=== PATIENT | female | born 1930 | race Caucasian/White ===

== ENCOUNTER 2017-01-05 23:50 | Inpatient (IN) | payer MEDICARE ==
--- NOTE | 2017-01-05 23:58 | ERPHSYRPT ---
- History of Present Illness Time Seen by Provider: 01/05/17 23:54 Source: patient, family, EMS Exam Limitations: no limitations Physician History: The hx is of chronic back pain no acute injury but pt has increased pain today , no fever, no cancer per pt, some urinary symptoms though; abd is soft without mass ; Timing/Duration: day(s) Method of Injury: unknown Quality: sharp, aching Back Pain Location: lumbar spine, paraspinous muscles Severity of Pain-Max: moderate Severity of Pain-Current: moderate Modifying Factors: Improves With: movement Associated Symptoms: problems urinating Previous symptoms: same symptoms as today Allergies/Adverse Reactions: Sulfa (Sulfonamide Antibiotics) [Sulfa(Sulfonamide Antibiotics)] Allergy (Severe , Verified 01/06/17 00:06) Home Medications: Alprazolam 0.25 mg [xanAX 0.25 MG] 0.25 mg PO DAILY PRN PRN 01/06/17 [ History] Metoprolol Tartrate 25 mg PO BID 01/06/17 [History] Sennosides 8 tab PO DAILY 01/06/17 [History] Hx Tetanus, Diphtheria Vaccination/Date Given: Yes Hx Influenza Vaccination/Date Given: No Hx Pneumococcal Vaccination/Date Given: Yes - Review of Systems Constitutional: No Fever, No Chills Eyes: No Symptoms Ears, Nose, & Throat: No Symptoms Respiratory: No Cough, No Dyspnea Cardiac: No Chest Pain, No Edema, No Syncope Abdominal/Gastrointestinal: No Abdominal Pain, No Nausea, No Vomiting, No Diarrhea Genitourinary Symptoms: No Dysuria Musculoskeletal: Back Pain, No Neck Pain Skin: No Rash Neurological: No Dizziness, No Focal Weakness, No Sensory Changes Psychological: No Symptoms Endocrine: No Symptoms All Other Systems: Reviewed and Negative - Past Medical History Pertinent Past Medical History: Yes Neurological History: No Pertinent History ENT History: Cataracts Cardiac History: No Pertinent History Respiratory History: Asthma, COPD Endocrine Medical History: No Pertinent History Musculoskeletal History: Arthritis, Degenerative Disk Disease, Fractures, Osteoporosis GI Medical History: Ulcer, Other History: No Pertinent History Psycho-Social History: Anxiety, Depression, Eating Disorders Female Reproductive Disorders: No Pertinent History Other Medical History: FREQUENT CONSTIPATION, kyphoscoliosis - Past Surgical History Past Surgical History: Yes Neuro Surgical History: No Pertinent History Cardiac: No Pertinent History Respiratory: No Pertinent History Gastrointestinal: No Pertinent History Genitourinary: No Pertinent History Musculoskeletal: Orthopedic Surgery Female Surgical History: No Pertinent History Other Surgical History: right hip fracture - Social History Smoking Status: Never smoker Exposure to second hand smoke: No Drug Use: none Patient Lives Alone: No (lives at home with family) - Nursing Vital Signs Temperature: 98.6 F Temperature Source: Oral Pulse Rate: 68 Respiratory Rate: 18 Pain Intensity: 9 - Physical Exam General Appearance: mild distress, alert Eye Exam: PERRL/EOMI, eyes nml inspection Neck Exam: normal inspection, non-tender, supple, full range of motion, No meningismus, No midline tenderness Respiratory Exam: normal breath sounds, lungs clear, No respiratory distress Cardiovascular Exam: regular rate/rhythm, normal heart sounds Gastrointestinal Exam: soft, No tenderness, No mass Pelvic Exam: deferred Rectal Exam: deferred Extremity Exam: normal inspection, normal range of motion, No calf tenderness, No parasthesia, No pedal edema Peripheral Pulses: carotid (R): 2+, carotid (L): 2+, femoral (R): 2+, femoral (L ): 2+, dorsalis-pedis (R): 2+, dorsalis-pedis (L): 2+ Neurologic Exam: alert, oriented x 3, cooperative, textile 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-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 nml as tested, normal mood/affect, nml station & gait, sensation nml, No motor deficits Skin Exam: normal color, warm, dry, No rash SpO2 Interpretation: normal SpO2: 99 Oxygen Delivery: Room Air - Course Nursing assessment & vital signs reviewed: Yes EKG Interpreted by Me: Sinus Rhythm, NORMAL AXIS, Non-specific ST Changes Ordered Tests: Active Orders 24 hr Category Date Time Status Cath [Catheter-Leland Das] STAT Care 01/06/17 00:12 Active EKG-ER Only STAT Care 01/06/17 02:01 Active IV Insertion STAT Care 01/05/17 23:59 Active AMYLASE Stat Lab 01/06/17 00:30 Completed CMP Stat Lab 01/06/17 00:30 Completed LIPASE Stat Lab 01/06/17 00:30 Completed Lactic Acid Urgent Lab 01/06/17 00:40 Completed TROPONIN Stat Lab 01/06/17 00:30 Completed Medication Summary Discontinued Medications Generic Name Dose Route Start Last Admin Trade Name Freq PRN Reason Stop Dose Admin Diphenhydramine HCl 12.5 mg 01/06/17 00:02 01/06/17 00:25 Benadryl 50 Mg/Ml IV 01/06/17 00:03 12.5 mg STAT ONE Administration Diphenhydramine HCl Confirm 01/06/17 00:08 Benadryl 50 Mg/Ml Administered 01/06/17 00:09 Dose 50 mg .ROUTE .STK-MED ONE Morphine Sulfate 4 mg 01/06/17 00:00 01/06/17 00:26 Morphine Sulfate 4 Mg Inj IV 01/06/17 00:01 4 mg STAT ONE Administration Morphine Sulfate Confirm 01/06/17 00:09 Morphine Sulfate 4 Mg Inj Administered 01/06/17 00:10 Dose 4 mg .ROUTE .STK-MED ONE Promethazine HCl 25 mg 01/06/17 00:01 Phenergan 25 Mg Inj IM 01/06/17 00:02 STAT ONE Promethazine HCl Confirm 01/06/17 00:08 Phenergan 25 Mg Inj Administered 01/06/17 00:09 Dose 25 mg .ROUTE .STK-MED ONE Lab/Rad Data: Laboratory Result Diagrams 01/05/17 00:28 01/06/17 00:30 Laboratory Results 01/06/17 01/06/17 01/05/17 Range/Units 00:40 00:30 01:32 WBC (4.0-10.5) K/mm3 RBC (4.1-5.4) M/mm3 Hgb (12.0-16.0) gm/dl Hct (35-47) % MCV (78-100) fl MCH (26-32) pg MCHC (32-36) g/dl RDW (11.5-14.0) % Plt Count (150-450) K/mm3 MPV (6-9.5) fl Gran % (36.0-66.0) % Lymphocytes % (24.0-44.0) % Monocytes % (0.0-12.0) % Eosinophils % (0.00-5.0) % Basophils % (0.0-0.4) % Basophils # (0-0.4) Sodium 137 (136-145) mEq/L Potassium 4.4 (3.5-5.1) mEq/L Chloride 98 (98-107) mEq/L Carbon Dioxide 30.8 (21-32) mEq/L Anion Gap 12.7 (5-15) MEQ/L BUN 22 H (9-20) mg/dL Creatinine 0.74 (0.55-1.30) mg/dl Estimated GFR > 60 ML/MIN Glucose 97 (70-110) MG/DL Lactic Acid 0.9 (0.4-2.0) Calcium 9.2 (8.5-10.1) mg/dL Total Bilirubin 0.4 (0.2-1.0) mg/dL AST 33 (15-37) U/L ALT 13 (12-78) U/L Alkaline Phosphatase 24 L (46-116) U/L Troponin I < 0.017 (0.000-0.056) ng/ml Serum Total Protein 6.5 (6.4-8.2) gm/dL Albumin 3.7 (3.4-5.0) g/dL Amylase 169 H (25-115) U/L Lipase 351 (73-393) U/L Ur Collection Type CLEAN CATCH Urine Color LT.YELLOW (YELLOW) Urine Appearance CLEAR (CLEAR) Urine pH 7.5 (5-6) Ur Specific [place] 1.015 (1.005-1.025) Urine Protein NEGATIVE (Negative) Urine Glucose (UA) NEGATIVE (NEGATIVE) mg/dL Urine Ketones NEGATIVE (NEGATIVE) Urine Nitrite NEGATIVE (NEGATIVE) Urine Bilirubin NEGATIVE (NEGATIVE) Urine Urobilinogen 0.2 (0-1) mg/dL Urine WBC (Auto) NEGATIVE (NEGATIVE) Urine RBC (Auto) NEGATIVE (0-5) Javier/ul Specimen Received 01/06/17 0130 01/05/17 Range/Units 00:28 WBC 6.2 (4.0-10.5) K/mm3 RBC 3.67 L (4.1-5.4) M/mm3 Hgb 12.1 (12.0-16.0) gm/dl Hct 36.7 (35-47) % MCV 100.0 (78-100) fl MCH 32.9 H (26-32) pg MCHC 33.0 (32-36) g/dl RDW 14.1 H (11.5-14.0) % Plt Count 152 (150-450) K/mm3 MPV 9.9 H (6-9.5) fl Gran % 64.2 (36.0-66.0) % Lymphocytes % 25.0 (24.0-44.0) % Monocytes % 8.7 (0.0-12.0) % Eosinophils % 1.8 (0.00-5.0) % Basophils % 0.3 (0.0-0.4) % Basophils # 0.02 (0-0.4) Sodium (136-145) mEq/L Potassium (3.5-5.1) mEq/L Chloride (98-107) mEq/L Carbon Dioxide (21-32) mEq/L Anion Gap (5-15) MEQ/L BUN (9-20) mg/dL Creatinine (0.55-1.30) mg/dl Estimated GFR ML/MIN Glucose (70-110) MG/DL Lactic Acid (0.4-2.0) Calcium (8.5-10.1) mg/dL Total Bilirubin (0.2-1.0) mg/dL AST (15-37) U/L ALT (12-78) U/L Alkaline Phosphatase (46-116) U/L Troponin I (0.000-0.056) ng/ml Serum Total Protein (6.4-8.2) gm/dL Albumin (3.4-5.0) g/dL Amylase (25-115) U/L Lipase (73-393) U/L Ur Collection Type Urine Color (YELLOW) Urine Appearance (CLEAR) Urine pH (5-6) Ur Specific [place] (1.005-1.025) Urine Protein (Negative) Urine Glucose (UA) (NEGATIVE) mg/dL Urine Ketones (NEGATIVE) Urine Nitrite (NEGATIVE) Urine Bilirubin (NEGATIVE) Urine Urobilinogen (0-1) mg/dL Urine WBC (Auto) (NEGATIVE) Urine RBC (Auto) (0-5) Javier/ul Specimen Received - Progress Progress: improved, re-examined Progress Note: 01/06/17 03:05 discussed with pt and Dr Argueta covering for Dr Caraballo and all agree best to place pt in on obs and try to void again in am ; Discussed with : Kendall Will see patient in: hospital (observation) Counseled pt/family regarding: lab results, diagnosis, need for follow-up - Departure Time of Disposition: 03:07 Departure Disposition: Observation Clinical Impression: Urinary retention with incomplete bladder emptying, Intractable low back pain Condition: Good Critical Care Time: No
[2017-01-06] MEDS ORDERED: MORPHINE SULFATE 4 MG INJ IV ONE
[2017-01-06] MEDS ORDERED: Phenergan 25 MG INJ IM ONE (00:01)
[2017-01-06] MEDS ORDERED: BENADRYL 50 MG/ML IV ONE (00:02)
[2017-01-06] MEDS ORDERED: Phenergan 25 MG INJ ONE (00:08)
[2017-01-06] MEDS ORDERED: BENADRYL 50 MG/ML ONE (00:08)
[2017-01-06] MEDS ORDERED: MORPHINE SULFATE 4 MG INJ ONE (00:09)
[2017-01-06 00:41] LABS: BASOPHIL % 0.3 % (0.0-0.4); Eosinophil % 1.8 % (0.00-5.0); Granulocytes % 64.2 % (36.0-66.0); Mean Platelet Volume 9.9 fl (6-9.5); Monocytes % 8.7 % (0.0-12.0); Platelet Count 152 K/mm3 (150-450); Red Blood Count 3.67 M/mm3 (4.1-5.4); Red Cell Distribution Width 14.1 % (11.5-14.0); White Blood Count 6.2 K/mm3 (4.0-10.5)
[2017-01-06 00:42] LABS: Mean Corpuscular Hemoglobin 32.9 pg (26-32)
[2017-01-06 01:36] LABS: Collection Type CLEAN CATCH; Ph 7.5 (5-6)
[2017-01-06 01:37] LABS: COMPLETE URINE MICROSCOPIC? NO
[2017-01-06 02:23] LABS: ALBUMIN 3.7 g/dL (3.4-5.0); ALKALINE PHOSPHATASE 24 U/L (46-116); ANION GAP 12.7 MEQ/L (5-15); BILIRUBIN,TOTAL 0.4 mg/dL (0.2-1.0); BLOOD UREA NITROGEN 22 mg/dL (9-20); CHLORIDE 98 mEq/L (98-107); Carbon Dioxide 30.8 mEq/L (21-32); Glucose 97 MG/DL (70-110); LIPASE 351 U/L (73-393); Potassium 4.4 mEq/L (3.5-5.1); SGOT/AST 33 U/L (15-37); SGPT/ALT 13 U/L (12-78); SODIUM 137 mEq/L (136-145); TROPONIN < 0.017 ng/ml (0.000-0.056); Total Protein 6.5 gm/dL (6.4-8.2)
[2017-01-06] MEDS ORDERED: NovoLOG Insulin SQ PRN (04:25)
[2017-01-06] MEDS ORDERED: Zofran 4 MG/2 ML VIAL IV PRN (04:25)
[2017-01-06] MEDS: Sodium Chloride 0.9% 1000 ML 1,000 ML IV SCH ×2 (04:36→15:01)
[2017-01-06] MEDS ORDERED: Sodium Chloride 3 ML UD NEBULES IH ONE (06:57)
[2017-01-06] MEDS: PULMICORT 0.5 MG/2 ML RESPULES IH SCH (06:59)
--- NOTE | 2017-01-06 08:54 | PCM.HP ---
History of Present Illness - Chief Complaint Chief Complaint: intractable pain/urinary retention History of Present Illness: is a 86 year old female who presented to the emergency department early this morning with severe upper back pain. She reports she has pain between her shoulders that began 1 week ago, there was no trauma, fall or inciting event. She was also unable to urinate and had a large amount of urinary retention. - Review of Systems Constitutional: No Fever, No Chills Respiratory: No Cough, No Short Of Breath Cardiac: No Chest Pain, No Edema, No Syncope Genitourinary Symptoms: Urinary Retention, No Dysuria, No Frequency Musculoskeletal: Back Pain Medications & Allergies Home Medications: Home Medication List Alprazolam 0.25 mg [xanAX 0.25 MG] 0.25 mg PO DAILY PRN PRN 01/06/17 [ History Confirmed 01/06/17] Metoprolol Tartrate 25 mg PO BID 01/06/17 [History Confirmed 01/06/17] Sennosides 2 tab PO QID 01/06/17 [History Confirmed 01/06/17] Allergies/Adverse Reactions: Allergies Allergy/AdvReac Type Severity Reaction Status Date / Time Sulfa (Sulfonamide Allergy Severe Verified 01/06/17 00:06 Antibiotics) [Sulfa(Sulfonamide Antibiotics)] - Past Medical History Past Medical History: Yes Neurological History: No Pertinent History ENT History: Cataracts Cardiac History: No Pertinent History, Myocardial Infarction (ND) Respiratory History: Asthma, COPD Endocrine Medical History: No Pertinent History Musculoskelatal History: Arthritis, Degenerative Disk Disease, Fractures, Osteoporosis GI Medical History: Ulcer, Other History: No Pertinent History Pyscho-Social History: Anxiety, Depression, Eating Disorders Reproductive Disorders: No Pertinent History Comment: FREQUENT CONSTIPATION, kyphoscoliosis - Female History Are you now?: No - Past Surgical History Past Surgical History: Yes Neuro Surgical History: No Pertinent History Cardiac History: No Pertinent History Respiratory Surgery: No Pertinent History GI Surgical History: No Pertinent History Genitourinary Surgical Hx: No Pertinent History Musculskeletal Surgical Hx: Orthopedic Surgery Female Surgical History: No Pertinent History Other Surgical History: right hip fracture - Social History Smoking Status: Never smoker Exposure to second hand smoke: No Alcohol: None Drug Use: none - Physical Exam Vital Signs: Vital Signs - 24 hr Temp Pulse Resp BP Pulse Ox 01/06/17 07:09 98.2 F 56 L 18 101/51 96 01/06/17 07:04 63 18 95 01/06/17 04:37 99.5 F 61 16 159/70 98 01/06/17 04:34 61 17 96 01/06/17 03:08 98.6 F 68 18 99 01/06/17 02:15 84 18 174/89 97 01/06/17 01:37 78 16 128/59 97 01/05/17 23:51 98.6 F 68 18 189/78 99 General Appearance: no apparent distress, alert, thin Neurologic Exam: alert, oriented x 3, No motor deficits Eye Exam: PERRL/EOMI, eyes nml inspection Respiratory Exam: normal breath sounds, lungs clear, No respiratory distress Cardiovascular Exam: regular rate/rhythm, normal heart sounds, normal peripheral pulses Gastrointestinal/Abdomen Exam: soft, normal bowel sounds, No tenderness, No mass Back Exam: point tenderness (lower t-spine, significant curvature to upper back) Extremity Exam: normal inspection, normal range of motion, pelvis stable Results - Labs Lab/Micro Results: Accuchecks Date 01/06/17 Time 07:25 Accuchecks Date 01/06/17 Time 07:25 - Radiology Impressions Radiology Exams & Impressions: Radiology Procedures Category Date Time Status THORACIC SPINE (AP,LAT,SWIMM) Urgent Exams 01/06/17 08:47 Ordered - Other Procedures and Tests Respiratory Therapy 01/06/17 10:00 Respiratory Nebulizer DAILY Assessment/Plan (1) Upper back pain Current Visit: Yes Status: Acute Assessment & Plan: xray t-spine, discussed xray should not cause skin irritation. suspect compression fracture from osteoporosis, patient with severe curvature of t- spine on exam and bony tenderness T10-12 region Code(s): M54.9 - DORSALGIA, UNSPECIFIED (2) Urinary retention with incomplete bladder emptying Current Visit: Yes Status: Acute Assessment & Plan: keep wakefield in place Code(s): R33.9 - RETENTION OF URINE, UNSPECIFIED
--- NOTE | 2017-01-06 09:19 | XRAY ---
Indication: Pain. Comparison: None AP/lateral thoracic spine demonstrates osteopenia and T12 compression fracture of uncertain chronicity with near-complete collapse. Visualized lungs hyperinflated and clear with incidental chunky left paratracheal calcified node.
[2017-01-06] MEDS ORDERED: xanAX 0.25 MG PO PRN (09:37)
[2017-01-06] MEDS: Lopressor 25MG Tab PO SCH ×2 (10:56→22:25)
[2017-01-06] MEDS: SENOKOT 8.6 MG PO SCH ×4 (10:59→22:25)
[2017-01-06] MEDS: MORPHINE SULFATE 4 MG INJ IV PRN (14:05)
[2017-01-07] MEDS: Sodium Chloride 0.9% 1000 ML 1,000 ML IV SCH ×3 (01:16→19:56)
[2017-01-07 05:37] LABS: BASOPHIL % 0.3 % (0.0-0.4); Eosinophil % 2.9 % (0.00-5.0); Granulocytes % 50.4 % (36.0-66.0); Lymphocytes % 34.6 % (24.0-44.0); Mean Cell Volume 102.9 fl (78-100); Mean Corpuscular Hemoglobin 33.2 pg (26-32); Mean Platelet Volume 9.8 fl (6-9.5); Monocytes % 11.8 % (0.0-12.0); Platelet Count 135 K/mm3 (150-450); Red Cell Distribution Width 14.3 % (11.5-14.0); White Blood Count 3.8 K/mm3 (4.0-10.5)
[2017-01-07 05:50] LABS: ALBUMIN 2.6 g/dL (3.4-5.0); ALKALINE PHOSPHATASE 18 U/L (46-116); BILIRUBIN,TOTAL 0.3 mg/dL (0.2-1.0); BLOOD UREA NITROGEN 13 mg/dL (9-20); CHLORIDE 105 mEq/L (98-107); Carbon Dioxide 28.6 mEq/L (21-32); Glucose 86 MG/DL (70-110); Potassium 4.4 mEq/L (3.5-5.1); SGOT/AST 25 U/L (15-37); SGPT/ALT 13 U/L (12-78); SODIUM 139 mEq/L (136-145); Total Protein 4.9 gm/dL (6.4-8.2)
[2017-01-07] MEDS: PULMICORT 0.5 MG/2 ML RESPULES IH SCH (06:49)
--- NOTE | 2017-01-07 07:59 | PCM.NOTE ---
Date and Time: 01/07/17 0754 Subjective Assessment: Pain is 0/10 when at rest and 10/10 with movement. Saqib po. C/o constipation. At home she takes 8 senna tabs a day, eats prunes, and takes a fiber supplement. - Review of Systems Constitutional: No Fever Abdominal/Gastrointestinal: Constipation Musculoskeletal: Back Pain Objective Exam General Appearance: no apparent distress, other (TORRES MARTINEZ) Neurologic Exam: alert, oriented x 3, cooperative Skin Exam: normal color, warm, dry Eye Exam: eyes nml inspection Respiratory Exam: normal breath sounds, lungs clear, No crackles/rales, No rhonchi, No wheezing Cardiovascular Exam: regular rate/rhythm, normal heart sounds, No murmur Gastrointestinal/Abdomen Exam: soft, No tenderness Extremity Exam: No pedal edema, No swelling Back Exam: other (kyphotic. ttp around T10-T12, mild, no crepitus) OBJECTIVE DATA Vital Signs: Vital Signs - 24 hr Temp Pulse Resp BP Pulse Ox 01/07/17 04:00 97.9 F 59 L 14 110/55 94 L 01/07/17 00:00 98.5 F 73 18 131/64 94 L 01/06/17 19:48 98.6 F 72 13 114/53 95 01/06/17 15:46 98.1 F 75 18 109/57 93 L 01/06/17 12:00 98.4 F 79 18 108/54 98 01/06/17 10:00 60 18 96 Pain Assessment - Last Documented Pain Intensity 3 Pain Scale Used 0-10 Pain Scale Intake and Output: Intake & Output 01/04/17 01/05/17 01/06/17 01/07/17 11:59 11:59 11:59 11:59 Intake Total 120 3083 Output Total 1300 1850 Balance -1180 1233 Weight 33.022 kg Lab Results: Lab Results-Last 24 Hours 01/06/17 01/07/17 01/07/17 Range/Units 05:00 05:15 05:15 WBC 3.8 L (4.0-10.5) K/mm3 RBC 3.10 L (4.1-5.4) M/mm3 Hgb 10.3 L (12.0-16.0) gm/dl Hct 31.9 L (35-47) % MCV 102.9 H (78-100) fl MCH 33.2 H (26-32) pg MCHC 32.3 (32-36) g/dl RDW 14.3 H (11.5-14.0) % Plt Count 135 L (150-450) K/mm3 MPV 9.8 H (6-9.5) fl Gran % 50.4 (36.0-66.0) % Lymphocytes % 34.6 (24.0-44.0) % Monocytes % 11.8 (0.0-12.0) % Eosinophils % 2.9 (0.00-5.0) % Basophils % 0.3 (0.0-0.4) % Basophils # 0.01 (0-0.4) Sodium 139 (136-145) mEq/L Potassium 4.4 (3.5-5.1) mEq/L Chloride 105 (98-107) mEq/L Carbon Dioxide 28.6 (21-32) mEq/L Anion Gap 10.0 (5-15) MEQ/L BUN 13 (9-20) mg/dL Creatinine 0.54 L (0.55-1.30) mg/dl Estimated GFR > 60 ML/MIN Glucose 86 (70-110) MG/DL Hemoglobin A1c 6.5 H (4.5-6.2) Calcium 7.9 L (8.5-10.1) mg/dL Total Bilirubin 0.3 (0.2-1.0) mg/dL AST 25 (15-37) U/L ALT 13 (12-78) U/L Alkaline Phosphatase 18 L (46-116) U/L Serum Total Protein 4.9 L (6.4-8.2) gm/dL Albumin 2.6 L (3.4-5.0) g/dL Radiology Exams: Radiology Procedures Category Date Time Status THORACIC SPINE (AP,LAT,SWIMM) Urgent Exams 01/06/17 08:47 Completed Multi-Disciplinary Progress Notes: Multi-Disciplinary Progress Notes 01/06/17 09:28 Case Management Note by Herminia Brian DISCHARGE PLAN REVIEWED. 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 WILL CONTINUE TO MONITOR FOR ALL D/C NEEDS. Initialized on 01/06/17 09:28 - END OF NOTE Assessment/Plan (1) Vertebral compression fracture Current Visit: Yes Status: Acute Assessment & Plan: I urged her to discuss possible kyphoplasty with Dr. Saeed; she has questions but will discuss with him and with Dr. Barker who is a family friend. If she opts to not have the surgery, will have her fitted with a brace. PT to consult either way; she lives at home with her elderly . Code(s): M48.50XA - COLLAPSED VERTEBRA, NEC, SITE UNSP, INIT (2) Constipation Current Visit: Yes Status: Acute Qualifiers: Constipation type: unspecified constipation type Qualified Code(s): K59.00 - Constipation, unspecified Assessment & Plan: try miralax here, ok to continue senna and prunes. Code(s): K59.00 - CONSTIPATION, UNSPECIFIED (3) Urinary retention with incomplete bladder emptying Current Visit: Yes Status: Acute Assessment & Plan: wakefield anchored currently. Unsure if the retention was due to the severe back pain; would like to see her able to empty her bladder on her own before she is discharged home. Code(s): R33.9 - RETENTION OF URINE, UNSPECIFIED
[2017-01-07] MEDS: SENOKOT 8.6 MG PO SCH ×4 (08:20→21:14)
[2017-01-07] MEDS: Lopressor 25MG Tab PO SCH ×2 (08:23→21:14)
[2017-01-07] MEDS: Miralax Powder 17GM PACKET PO SCH (08:24)
[2017-01-08] MEDS: MORPHINE SULFATE 4 MG INJ IV PRN (04:39)
[2017-01-08] MEDS: Sodium Chloride 0.9% 1000 ML 1,000 ML IV SCH ×2 (05:23→18:30)
[2017-01-08] MEDS: PULMICORT 0.5 MG/2 ML RESPULES IH SCH (06:50)
[2017-01-08] MEDS ORDERED: Lactated Ringers 2,000 ML IV ONE (06:56)
[2017-01-08] MEDS ORDERED: CEFAZOLIN 2 GM-D5W BAG** 50 ML IV SCH (08:00)
[2017-01-08] MEDS ORDERED: DIPRIVAN 200 MG/20 ML IV ONE (08:00)
[2017-01-08] MEDS ORDERED: SUBLIMAZE 100 MCG/2 ML IV ONE (08:00)
[2017-01-08] MEDS ORDERED: Zofran 4 MG/2 ML VIAL IV ONE (08:00)
[2017-01-08] MEDS ORDERED: Lactated Ringers 1,000 ML IV SCH (08:00)
[2017-01-08] MEDS ORDERED: Quelicin Fliptop 200 MG/10 ML IJ ONE (08:00)
[2017-01-08] MEDS ORDERED: Decadron 4 MG INJ IV ONE (08:00)
[2017-01-08] MEDS ORDERED: Pepcid 20 MG VIAL IV SCH (08:00)
--- NOTE | 2017-01-08 08:55 | PCM.NOTE ---
Date and Time: 01/08/17851 Subjective Assessment: Pt scheduled for kyphoplasty this morning although she hasn't spoken wiht Dr. Saeed yet. Lastm orphine 3hrs ago. steven po. did have a small BM. - Review of Systems Constitutional: No Fever Musculoskeletal: Back Pain Objective Exam General Appearance: no apparent distress, cachetic Neurologic Exam: alert, oriented x 3, cooperative Skin Exam: normal color, warm, dry Respiratory Exam: normal breath sounds, lungs clear, No wheezing Cardiovascular Exam: regular rate/rhythm, normal heart sounds, No murmur Gastrointestinal/Abdomen Exam: soft, distention, No tenderness, No guarding, No rebound Extremity Exam: No pedal edema, No swelling OBJECTIVE DATA Vital Signs: Vital Signs - 24 hr Temp Pulse Resp BP BP Pulse Ox 01/08/17 08:08 98.6 F 75 18 127/58 94 L 01/08/17 07:31 80 16 93 L 01/08/17 07:30 98.6 F 75 18 127/58 94 L 01/08/17 04:00 98.5 F 72 17 119/66 96 01/08/17 00:00 98.0 F 68 17 141/65 96 01/07/17 20:00 98.3 F 64 17 116/58 94 L 01/07/17 15:14 97.4 F 62 18 137/68 95 01/07/17 12:21 97.8 F 64 18 144/65 93 L Pain Assessment - Last Documented Pain Intensity 6 Pain Scale Used [facility] Intake and Output: Intake & Output 01/05/17 01/06/17 01/07/17 01/08/17 11:59 11:59 11:59 11:59 Intake Total 120 3083 2683 Output Total 1300 1850 4000 Balance -1180 1233 -1317 Weight 33.022 kg 38.374 kg 36.469 kg Lab Results: Accuchecks Date 01/07/17 Accucheck Value: 109 Radiology Exams: Radiology Procedures Category Date Time Status THORACIC SPINE (AP,LAT,SWIMM) Urgent Exams 01/06/17 08:47 Completed Multi-Disciplinary Progress Notes: Multi-Disciplinary Progress Notes 01/07/17 16:32 Physical Therapy Note by Joelle Hitchcock PATIENT AGREEABLE TO SMALL ICE PACK TO HER BACK FOR PAIN RELIEF THIS P.M. - SEEMS TO FIND IT BENEFICIAL STATING IT FEELS "PRETTY GOOD". WILL FOLLOW. PROBABLE T12 KYPHOPLASTY TOMORROW. Initialized on 01/07/17 16:32 - END OF NOTE Assessment/Plan (1) Vertebral compression fracture Current Visit: Yes Status: Acute Assessment & Plan: plabs kyphoplasty. Afterward I suspect that, given her frail status, she will need rehab possibly as a swing bed (they are interested in this). Code(s): M48.50XA - COLLAPSED VERTEBRA, NEC, SITE UNSP, INIT (2) Constipation Current Visit: Yes Status: Acute Qualifiers: Constipation type: unspecified constipation type Qualified Code(s): K59.00 - Constipation, unspecified Assessment & Plan: will adjust medicines after surgery as needed. Code(s): K59.00 - CONSTIPATION, UNSPECIFIED (3) Urinary retention with incomplete bladder emptying Current Visit: Yes Status: Acute Assessment & Plan: has wakefield catheter. after surgery will try weaning off the catheter. Code(s): R33.9 - RETENTION OF URINE, UNSPECIFIED
[2017-01-08] MEDS ORDERED: Marcaine 0.5% SDV 10 ML ONE (09:15)
[2017-01-08] MEDS ORDERED: Lactated Ringers 1,000 ML IV ONE (09:15)
[2017-01-08] MEDS: Lopressor 25MG Tab PO SCH ×2 (09:28→21:12)
--- NOTE | 2017-01-08 12:48 | OP ---
SURGERY DATE/TIME: 01/08/2017 1050 PREOPERATIVE DIAGNOSIS: T12 osteopenic pathologic compression fracture. POSTOPERATIVE DIAGNOSES: 1) T12 burst fracture with vertebral collapse. 2) T11-L1 osteopenic pathologic compression fracture and evolving junctional collapse. PROCEDURES: 1) In situ fusion of T12. 2) Fluoroscopy per surgeon for T12. 3) Bone biopsy T12. 4) Kyphoplasty T11 and L1. 5) Bone biopsy T11 and L1. 6) Fluoroscopy per surgeon for T11 and L1. SURGEON: Fredy Saeed D.O. HAND BOOTMAKER: None. ANESTHESIA: General per MAT PACKER. ESTIMATED BLOOD LOSS: Minimal. DESCRIPTION OF PROCEDURE: The patient intraoperatively noted to have multiple subacute and acute on chronic compression fractures throughout the mid thoracic and thoracolumbar spine. Based on this I thought it was bella to treat the core problem which was T12 and create a little additional support for her in the marginal superior-inferior to this treatment zone with kyphoplasty with decompression fractures above and below. The T12 is really in fact more of a middle column and anterior column collapse making this by definition more a burst fracture and was treated with in situ fusion in the typical manner. The patient is taken to the operative suite and placed in supine position. Given a general anesthetic, placed prone. All neurovascular areas well padded. Sterile prep and drape to the back. Two view fluoroscopic guidance used to identify T12 and then the associated areas of T11 and L1. The entry point was made in the T12 vertebral body through the pedicles in the 10:00 and 2:00 positions crossing with 2-in-1 CareFusion cannula and trocar into the vertebral body. Docking points on the medial pedicular rosario and then twist drills and coring reamers advanced up to the anterior shell but not beyond to take specimen for specimen for biopsy. Balloons were inflated to pressures of 100 to 200 mm of Mercury in the vertebral body which was depressed and triangular in shape. These balloons were then disinflated and removed and bone void opacifying polymethyl methacrylate was filled about 2 to 3 cc into this breach. X-rays looked excellent and Ethilon sutures were placed here. T11 and L1 were treated with standard kyphoplasty with entry points made in the 10:00 and 2:00 positions crossing the pedicle into the vertebral body avoiding medial pedicular wall. On AP view and lateral view the pedicle was penetrated and the vertebral body entered before the medial pedicular wall would be violated by cannulas. Biopsies were taken. Balloons were inflated to pressures of 100 to 200 mm of Mercury and then disinflated and then finally bone void opacifying polymethyl methacrylate was placed under pressure volumes of about 5 to 6 cc bilaterally. Ethilon sutures were placed in the portal sites. The patient sent onto recovery room in satisfactory condition. I talked to the family about the merits of the case.
[2017-01-08] MEDS ORDERED: MORPHINE SULFATE 4 MG INJ IV PRN (13:20)
--- NOTE | 2017-01-08 13:30 | XRAY ---
Indication: T11/T12/L1 kyphoplasty. Intraoperative fluoroscopy was provided for 8 minute 11 seconds. 2 digital spot images submitted for interpretation demonstrates T11/T12/L1 kyphoplasty without abnormal extravasation of cement material. Correlate with intraoperative findings/report.
[2017-01-08] MEDS: Miralax Powder 17GM PACKET PO SCH (15:05)
[2017-01-08] MEDS: SENOKOT 8.6 MG PO SCH ×4 (15:05→21:12)
[2017-01-09] MEDS: Sodium Chloride 0.9% 1000 ML 1,000 ML IV SCH ×2 (05:09→15:24)
[2017-01-09] MEDS: PULMICORT 0.5 MG/2 ML RESPULES IH SCH (06:39)
[2017-01-09] MEDS: SENOKOT 8.6 MG PO SCH ×4 (09:07→22:04)
[2017-01-09] MEDS: Lopressor 25MG Tab PO SCH ×2 (09:07→22:04)
[2017-01-09] MEDS: Miralax Powder 17GM PACKET PO SCH (09:07)
[2017-01-09] MEDS ORDERED: CITROMA 296 ML PO ONE (10:06)
--- NOTE | 2017-01-09 10:06 | PCM.NOTE ---
Date and Time: 01/09/17 1002 Subjective Assessment: Her pain is much less since the kyphoplasty; has occasional pain when rising from lying down. Saqib po. Has been up walking! PT to evaluate today. - Review of Systems Constitutional: No Fever Musculoskeletal: Back Pain Objective Exam General Appearance: no apparent distress, cachetic Neurologic Exam: alert, oriented x 3, cooperative Skin Exam: normal color, warm, dry Eye Exam: eyes nml inspection Respiratory Exam: normal breath sounds, lungs clear Cardiovascular Exam: regular rate/rhythm, normal heart sounds, No murmur Gastrointestinal/Abdomen Exam: soft, normal bowel sounds, distention, No tenderness Extremity Exam: No pedal edema, No swelling Back Exam: other (dressing in place.) OBJECTIVE DATA Vital Signs: Vital Signs - 24 hr Temp Pulse Resp BP Pulse Ox 01/09/17 08:00 20 01/09/17 07:53 97.7 F 63 20 129/63 94 L 01/09/17 06:41 60 16 94 L 01/09/17 04:00 98.1 F 81 14 151/69 96 01/09/17 00:00 98.3 F 72 16 132/63 95 01/08/17 20:34 97.9 F 74 14 125/59 92 L 01/08/17 20:00 20 01/08/17 15:38 20 01/08/17 15:19 97.8 F 71 18 137/73 95 01/08/17 13:30 97.8 F 59 L 18 155/67 92 L 01/08/17 13:00 97.6 F 67 18 149/70 93 L 01/08/17 12:45 97.6 F 67 18 153/75 92 L 01/08/17 12:00 97.6 F 67 19 153/75 94 L Pain Assessment - Last Documented Pain Intensity 2 Pain Scale Used 0-10 Pain Scale Intake and Output: Intake & Output 01/06/17 01/07/17 01/08/17 01/09/17 11:59 11:59 11:59 11:59 Intake Total 1761 Output Total 1050 Balance 711 Weight 41.685 kg Radiology Exams: Radiology Procedures Category Date Time Status KYPHOPLASTY per VERTEBRAE Routine Exams 01/08/17 Completed KYPHOPLASTY per VERTEBRAE Routine Exams 01/08/17 Taken KYPHOPLASTY per VERTEBRAE Routine Exams 01/08/17 Taken Assessment/Plan (1) Vertebral compression fracture Current Visit: Yes Status: Acute Assessment & Plan: much better after kyphoplasty, thank you! Await report from PT whether pt can go home, needs rehab, needs home health etc. Code(s): M48.50XA - COLLAPSED VERTEBRA, NEC, SITE UNSP, INIT (2) Constipation Current Visit: Yes Status: Acute Qualifiers: Constipation type: unspecified constipation type Qualified Code(s): K59.00 - Constipation, unspecified Assessment & Plan: try mag citrate today. more bloated. Code(s): K59.00 - CONSTIPATION, UNSPECIFIED (3) Urinary retention with incomplete bladder emptying Current Visit: Yes Status: Acute Assessment & Plan: will try weaning off the wakefield catheter through the day today. If she can urinate ok overnight can go without the wakefield catheter. If not, will replace it and refer to urology. Code(s): R33.9 - RETENTION OF URINE, UNSPECIFIED
[2017-01-10] MEDS: Sodium Chloride 0.9% 1000 ML 1,000 ML IV SCH ×2 (00:59→12:48)
[2017-01-10] MEDS: PULMICORT 0.5 MG/2 ML RESPULES IH SCH (06:29)
[2017-01-10 08:01] VITALS: O2SAT 97
[2017-01-10] MEDS: Miralax Powder 17GM PACKET PO SCH (08:05)
[2017-01-10] MEDS: SENOKOT 8.6 MG PO SCH ×2 (08:05→12:39)
[2017-01-10] MEDS: Lopressor 25MG Tab PO SCH (08:06)
[2017-01-10 08:47] LABS: BASOPHIL % 0.2 % (0.0-0.4); Eosinophil % 3.3 % (0.00-5.0); Granulocytes % 60.7 % (36.0-66.0); Lymphocytes % 26.4 % (24.0-44.0); Mean Cell Volume 101.9 fl (78-100); Mean Corpuscular Hemoglobin 33.4 pg (26-32); Mean Platelet Volume 9.6 fl (6-9.5); Monocytes % 9.4 % (0.0-12.0); Platelet Count 149 K/mm3 (150-450); Red Cell Distribution Width 13.9 % (11.5-14.0); White Blood Count 4.6 K/mm3 (4.0-10.5)
--- NOTE | 2017-01-10 09:00 | PCM.DS ---
Discharge Summary Date of Admission: 01/08/17 08:59 Admitting Physician: DAVION QUIROS Primary Care Provider: RADHA ZEPEDA Allergies Allergies Sulfa (Sulfonamide Antibiotics) [Sulfa(Sulfonamide Antibiotics)] Allergy (Severe , Verified 01/06/17 00:06) Hospital Summary - Hospital Course Hospital Course: C/o burning pain in the back this morning, she thinks from the bandage. She did well with bladder training but states she was up every 1-2 hours last night to urinate and couldn't make it to the toilet. She went to urology years ago, found to have urinary retention but told it's due to her age and they couldn't do anything about it. - Vitals & Intake/Output Vital Signs: Vital Signs Temperature 98.2 F 01/10/17 08:00 Pulse Rate 60 01/10/17 08:00 Respiratory Rate 18 01/10/17 08:00 Blood Pressure 161/73 01/10/17 08:00 O2 Sat by Pulse Oximetry 97 01/10/17 08:00 Intake & Output: Intake & Output 01/07/17 01/08/17 01/09/17 01/10/17 11:59 11:59 11:59 11:59 Intake Total 1761 3214 Output Total 1050 2400 Balance 711 814 Weight 41.685 kg 44.18 kg - Lab Result Diagrams: 01/10/17 08:30 01/07/17 05:15 Lab Results-Last 24 Hrs: Lab Results-Last 24 Hours 01/10/17 Range/Units 08:30 WBC 4.6 (4.0-10.5) K/mm3 RBC 3.20 L (4.1-5.4) M/mm3 Hgb 10.7 L (12.0-16.0) gm/dl Hct 32.6 L (35-47) % MCV 101.9 H (78-100) fl MCH 33.4 H (26-32) pg MCHC 32.8 (32-36) g/dl RDW 13.9 (11.5-14.0) % Plt Count 149 L (150-450) K/mm3 MPV 9.6 H (6-9.5) fl Gran % 60.7 (36.0-66.0) % Lymphocytes % 26.4 (24.0-44.0) % Monocytes % 9.4 (0.0-12.0) % Eosinophils % 3.3 (0.00-5.0) % Basophils % 0.2 (0.0-0.4) % Basophils # 0.01 (0-0.4) - Procedures and Test Procedures and Tests throughout Hospitalization: Therapy Orders & Screens 01/08/17 13:45 PT Eval & Treat (MD Order) ONCE Evaluate: Yes Treat: Yes Reason for Eval:: for gait train today and daily Diagnosis: FALLS WITH FRACTURE VERTABRAE Discharge Exam General Appearance: no apparent distress Neurologic Exam: alert, oriented x 3, cooperative Skin Exam: normal color, warm, dry Respiratory Exam: normal breath sounds, lungs clear Cardiovascular Exam: regular rate/rhythm, normal heart sounds, No murmur Extremity Exam: No pedal edema, No swelling Back Exam: other (bandage in place) Final Diagnosis/Problem List - Final Discharge Diagnosis/Problem (1) Vertebral compression fracture Current Visit: Yes Status: Acute Assessment & Plan: Ok for RN to change bandage. If she does well with PT today, ok to d/c home with home health. If any question, pt feeling tired etc ok to keep one more day. (2) Constipation Current Visit: Yes Status: Acute Assessment & Plan: resolved with mag citrate. (3) Urinary retention with incomplete bladder emptying Current Visit: Yes Status: Acute Assessment & Plan: consult urology. - Discharge Disposition: Home, Self-Care Condition: Good Prescriptions: No Action Metoprolol Tartrate 25 mg PO BID Alprazolam 0.25 mg [xanAX 0.25 MG] 0.25 mg PO DAILY PRN PRN PRN Reason: Anxiety Sennosides 2 tab PO QID Follow up with: RADHA ZEPEDA [Primary Care Provider] -
[2017-01-10 09:03] LABS: ANION GAP 9.7 MEQ/L (5-15); BLOOD UREA NITROGEN 7 mg/dL (9-20); CHLORIDE 103 mEq/L (98-107); Carbon Dioxide 30.6 mEq/L (21-32); Glucose 102 MG/DL (70-110); Potassium 4.4 mEq/L (3.5-5.1); SODIUM 139 mEq/L (136-145)
[2017-01-10 12:01] VITALS: PULSE 55
[2017-01-10] MEDS ORDERED: APRESOLINE 20 MG/ML INJ IV ONE (12:45)
[2017-01-10 13:17] VITALS: BP 142/70
[2017-01-10 15:48] LABS: Collection Type CCMS
[2017-01-10 15:49] LABS: ADD URINE CULTURE? NO (NO); COMPLETE URINE MICROSCOPIC? YES; Ph 7.5 (5-6); WBC 0-2 /HPF (0-5)
== END 2017-01-10 15:59 | disposition home or self-care (01) | DRG 479 ==
LOC: ED 23:50 → MED SURG 01-06 03:30 → OBSVTOIN 01-08 08:59
PROVIDERS: ADMIT Family Medicine; ATTEND Family Medicine
PROC: 0PS43ZZ Reposition Thoracic Vertebra, Percutaneous Approach (ICD-10-PCS; principal; 2017-01-08)
PROC: 0PB43ZX Excision of Thoracic Vertebra, Percutaneous Approach, Diagnostic (ICD-10-PCS; 2017-01-08)
PROC: 0PU43JZ Supplement Thoracic Vertebra with Synthetic Substitute, Percutaneous Approach (ICD-10-PCS; 2017-01-08)
PROC: 0QS03ZZ Reposition Lumbar Vertebra, Percutaneous Approach (ICD-10-PCS; 2017-01-08)
PROC: 0QU03JZ Supplement Lumbar Vertebra with Synthetic Substitute, Percutaneous Approach (ICD-10-PCS; 2017-01-08)
PROC: 0QB03ZX Excision of Lumbar Vertebra, Percutaneous Approach, Diagnostic (ICD-10-PCS; 2017-01-08)
DX: M80.08XA Age-related osteoporosis with current pathological fracture, vertebra(e), initial encounter for fracture (principal); M54.6 Pain in thoracic spine; J45.909 Unspecified asthma, uncomplicated; J44.9 Chronic obstructive pulmonary disease, unspecified; F41.8 Other specified anxiety disorders; M41.9 Scoliosis, unspecified; M54.9 Dorsalgia, unspecified; R33.9 Retention of urine, unspecified; K59.00 Constipation, unspecified
CPT/HCPCS: 01936; 36000; 36415; 51702; 72072; 72291; 80048; 80053; 81000; 81002; 82150; 82962; 83036; 83605; 83690; 84484; 85025; 88307; 88311; 88313; 88341; 88342; 93005; 94640; 94760; 96374; 96375; 99100; 99285; G0378; J0330; J0360; J0690; J1100; J1200; J2270; J2405; J2550; J2704; J3010; Q9967; A9270-GY

== ENCOUNTER 2018-07-14 19:19 | Inpatient (IN) | payer MEDICARE ==
[2018-07-14 19:58] LABS: BASOPHIL % 0.2 % (0.0-0.4); Basophil (Absolute #) 0.01 (0-0.4); Eosinophil % 3.1 % (0.00-5.0); Eosinophil (Absolute #) 0.19 (0-0.5); Granulocytes % 38.6 % (36.0-66.0); Hematocrit 30.5 % (35-47); Lymphocyte (Absolute #) 2.84 (1.0-4.6); Lymphocytes % 45.7 % (24.0-44.0); Mean Corpuscular Hemoglobin 33.1 pg (26-32); Mean Corpuscular Hgb Concent. 32.8 g/dl (32-36); Monocyte (Absolute #) 0.77 (0.0-1.3); Monocytes % 12.4 % (0.0-12.0); Platelet Count 181 K/mm3 (150-450); Red Blood Count 3.02 M/mm3 (4.1-5.4); Red Cell Distribution Width 13.2 % (11.5-14.0); White Blood Count 6.2 K/mm3 (4.0-10.5)
--- NOTE | 2018-07-14 20:00 | ERPHSYRPT ---
- History of Present Illness Time Seen by Provider: 07/14/18 19:48 Historian: patient Exam Limitations: no limitations Patient Subjective Stated Complaint: Burning in chest Triage Nursing Assessment: Patient brought into ED per EMS from [facility] for complains of burning in chest. Patient states she has had this for about three weeks. Patient states she was lifting a weight to exercise and the pain got worse. Patient denies pain or discomfort just complains of "burning" pain to chest that goes to back. Lungs noted to be clear/diminished thoughtout. S1-S2 heart tones audible. No edema noted. Physician History: This is a an 87-year-old white female with history of cataracts, asthma, COPD, MD, ulcers, arthritis, degenerative disc disease She arrives with complaints of burning in her chest for 3 weeks she states this became worse this morning at about 6:00 when she was lifting some 1 pound weights she states that prior to this pain had been intermittent but now it is continuous. She has some mild shortness of breath no nausea no fevers no coughs., Patient was seen by medics prior to arrival and given aspirin 324 mg. Patient does state she is feeling somewhat better now that her pain is improved. Past medical history includes cataracts, asthma, COPD, ulcers, arthritis, degenerative disc disease, fractures, osteoporosis, anxiety, depression, eating disorder, frequent constipation, kyphoscoliosis Past surgical history includes right hip surgery. social history patient denies tobacco alcohol or illicit drugs Timing/Duration: other (burning in chest for 3 weeks worse since 6:00 this morning) Activities at Onset: other (worsening after lifting 1 pound weights this morning ) Quality: burning Location: substernal, central Chest Pain Radiation: no radiation Severity of Pain-Max: moderate Severity of Pain-Current: mild Modifying Factors: Improves With: nothing Associated Symptoms: shortness of breath, other (burning in anterior chest), No nausea, No vomiting, No palpitations, No heartburn, No abdominal pain, No cough , No hurts to breathe, No diaphoresis, No chills, No fever, No fatigue, No weakness, No swelling/lump in chest, No syncope, No rash, No headache, No dizziness, No edema, No back pain Prior Chest Pain/Cardiac Workup: heart attack Nitro Today/Relief: no nitro taken today Aspirin Treatment Today: 81 mg x 4, provided by EMS Allergies/Adverse Reactions: Sulfa (Sulfonamide Antibiotics) [Sulfa(Sulfonamide Antibiotics)] Allergy (Severe , Verified 07/14/18 19:34) Home Medications: Alendronate Sodium 70 mg [Fosamax 70 MG] 1 tab PO WEEKLY 07/14/18 [History ] Ascorbic Acid 500 mg [Vitamin C 500 MG] 1 tab PO BID 07/14/18 [History] Aspirin 81 gm Chew [Baby Aspirin 81 mg Chew] 81 mg PO DAILY 07/14/18 [ History] Budesonide 0.5 mg/2 ml [Pulmicort 0.5 mg/2 ml Respules] 0.5 mg IH BID PRN 07/14/18 [History] Furosemide 20 mg [Lasix 20 mg] 20 mg PO DAILY PRN 07/14/18 [History] Lubiprostone [Amitiza] 8 mcg PO DAILY 07/14/18 [History] Metoprolol Tartrate 1 tab PO BID 07/14/18 [History] Ranitidine HCl [Zantac 75] 150 mg PO BID 07/14/18 [History] Hx Tetanus, Diphtheria Vaccination/Date Given: Yes Hx Influenza Vaccination/Date Given: No Hx Pneumococcal Vaccination/Date Given: Yes Immunizations Up to Date: Yes - Review of Systems Constitutional: No Fever, No Chills Eyes: No Symptoms (only) Ears, Nose, & Throat: No Symptoms Respiratory: Dyspnea Cardiac: Chest Pain, Edema (swelling in legs), No Palpitations, No Syncope Abdominal/Gastrointestinal: Other (chronic eating disorder), No Abdominal Pain, No Nausea, No Vomiting, No Diarrhea, No Constipation, No Hematochezia, No Melena , No Dysphagia Genitourinary Symptoms: No Dysuria Musculoskeletal: No Back Pain, No Neck Pain Skin: No Rash Neurological: No Dizziness, No Focal Weakness, No Sensory Changes Psychological: No Symptoms Endocrine: No Symptoms All Other Systems: Reviewed and Negative - Past Medical History Pertinent Past Medical History: Yes Neurological History: No Pertinent History ENT History: Cataracts Cardiac History: No Pertinent History, Myocardial Infarction (MD) Respiratory History: Asthma, COPD Endocrine Medical History: No Pertinent History Musculoskeletal History: Arthritis, Degenerative Disk Disease, Fractures, Osteoporosis GI Medical History: Ulcer, Other History: No Pertinent History Psycho-Social History: Anxiety, Depression, Eating Disorders Female Reproductive Disorders: No Pertinent History Other Medical History: FREQUENT CONSTIPATION, kyphoscoliosis - Past Surgical History Past Surgical History: Yes Neuro Surgical History: No Pertinent History Cardiac: No Pertinent History Respiratory: No Pertinent History Gastrointestinal: No Pertinent History Genitourinary: No Pertinent History Musculoskeletal: Orthopedic Surgery Female Surgical History: No Pertinent History Other Surgical History: right hip fracture - Social History Smoking Status: Never smoker Exposure to second hand smoke: No Drug Use: none Patient Lives Alone: No - Female History Hx Last Menstrual Period: menopausal Hx Now: No - Nursing Vital Signs Nursing Vital Signs: Initial Vital Signs Temperature 97.9 F 07/14/18 19:25 Pulse Rate 83 07/14/18 19:25 Respiratory Rate 18 07/14/18 19:25 Blood Pressure 178/87 07/14/18 19:25 O2 Sat by Pulse Oximetry 99 07/14/18 19:25 Pain Scale Pain Intensity 0 - Physical Exam General Appearance: no apparent distress, alert, cachetic Eye Exam: PERRL/EOMI, eyes nml inspection Ears, Nose, Throat Exam: normal ENT inspection, moist mucous membranes Neck Exam: normal inspection, non-tender, supple, full range of motion Respiratory Exam: normal breath sounds, lungs clear, No respiratory distress Cardiovascular Exam: regular rate/rhythm, normal heart sounds, capillary refill <2 sec, edema (1+ edema lower legs) Gastrointestinal/Abdomen Exam: soft, No tenderness, No mass Back Exam: normal inspection, No CVA tenderness, No vertebral tenderness Extremity Exam: normal inspection, normal range of motion, other (1+ edema lower legs) Neurologic Exam: alert, oriented x 3, cooperative, die tester II-XII nml as tested, normal mood/affect, sensation nml, No motor deficits Skin Exam: normal color, warm, dry SpO2 Interpretation: normal (99%) SpO2: 99 Oxygen Delivery: Room Air - Course Nursing assessment & vital signs reviewed: Yes EKG Interpreted by Me: RATE (84 bpm), Sinus Rhythm, Left [place] Deviation, Other ( EKG: Sinus rhythm 84 bpm, left axis deviation, no acute ST or T wave changes, compared to January 06, 2017) - Radiology Exams Chest X-ray Interpretation: Interpreted by me (no acute disease process) - CT Exams Chest CT Interpretation: Tele-radiologist Report (CTA chest: Impression 1. T12, L1, and L2 vertebroplasty's. 2. Low density bone consistent with osteopenia/ osteoporosis. 3. Multiple chronic-appearing compression fractures, T9, T11, T12 , and L1. 4. No obvious pulmonary embolus. 5. Prominent COPD.) Ordered Tests: Active Orders 24 hr Category Date Time Status Accucheck STAT Care 07/14/18 20:40 Active Accucheck STAT Care 07/14/18 21:18 Active Diagnostic Tech STAT Care 07/14/18 19:28 Active EKG-ER Only STAT Care 07/14/18 19:28 Active IV Insertion STAT Care 07/14/18 19:28 Active Pulse Oximetry (ED) STAT Care 07/14/18 19:41 Active CHEST 1 VIEW (PORTABLE) Stat Exams 07/14/18 19:41 Taken CHEST WITH CONTRAST [CT] Stat Exams 07/14/18 21:14 Taken AMYLASE Stat Lab 07/14/18 19:55 Completed CBC W DIFF Stat Lab 07/14/18 19:55 Completed CMP Stat Lab 07/14/18 19:55 Completed D-DIMER QUANTITATION Stat Lab 07/14/18 19:55 Completed LIPASE Stat Lab 07/14/18 19:55 Completed NT PRO BNP Stat Lab 07/14/18 19:55 Completed PROTIME WITH INR Stat Lab 07/14/18 19:55 Completed PTT Stat Lab 07/14/18 19:55 Completed TROPONIN Q3H Lab 07/14/18 19:55 Completed TROPONIN Q3H Lab 07/14/18 22:28 Received TROPONIN Q3H Lab 07/15/18 01:45 Ordered TROPONIN Q3H Lab 07/15/18 04:45 Ordered TROPONIN Q3H Lab 07/15/18 07:45 Ordered Medication Summary Generic Name Dose Route Start Last Admin Trade Name Freq PRN Reason Stop Dose Admin Sodium Chloride 1,000 mls @ 100 mls/hr 07/14/18 21:15 07/14/18 21:16 Sodium Chloride 0.9% 1000 Ml IV 08/13/18 21:14 100 mls/hr .Q10H LIAN Administration Discontinued Medications Generic Name Dose Route Start Last Admin Trade Name Freq PRN Reason Stop Dose Admin Morphine Sulfate Confirm 07/14/18 21:36 Morphine Sulfate 2 Mg Inj Administered 07/14/18 21:37 Dose 2 mg .ROUTE .STK-MED ONE Morphine Sulfate 2 mg 07/14/18 21:38 07/14/18 21:41 Morphine Sulfate 2 Mg Inj IV 07/14/18 21:39 2 mg STAT ONE Administration Ondansetron HCl Confirm 07/14/18 21:35 Zofran 4 Mg/2 Ml Vial Administered 07/14/18 21:36 Dose 4 mg .ROUTE .STK-MED ONE Ondansetron HCl 4 mg 07/14/18 21:38 07/14/18 21:41 Zofran 4 Mg/2 Ml Vial IV 07/14/18 21:39 4 mg STAT ONE Administration Lab/Rad Data: Laboratory Result Diagrams 07/14/18 19:55 07/14/18 19:55 Laboratory Results 07/14/18 07/14/18 07/14/18 Range/Units 19:55 19:55 19:55 WBC (4.0-10.5) K/mm3 RBC (4.1-5.4) M/mm3 Hgb (12.0-16.0) gm/dl Hct (35-47) % MCV (78-100) fl MCH (26-32) pg MCHC (32-36) g/dl RDW (11.5-14.0) % Plt Count (150-450) K/mm3 MPV (6-9.5) fl Gran % (36.0-66.0) % Eos # (Auto) (0-0.5) Absolute Lymphs (auto) (1.0-4.6) Absolute Monos (auto) (0.0-1.3) Lymphocytes % (24.0-44.0) % Monocytes % (0.0-12.0) % Eosinophils % (0.00-5.0) % Basophils % (0.0-0.4) % Absolute Granulocytes (1.4-6.9) Basophils # (0-0.4) PT 10.7 (9.95-12.35) SECONDS INR 0.92 (0.8-3.0) APTT 24.4 L (25.3-37.0) SECONDS D-Dimer 1327 H* (215-500) ng/mL Sodium 135 L (137-145) mmol/L Potassium 3.2 L (3.5-5.1) mmol/L Chloride 94 L (98-107) mmol/L Carbon Dioxide 32 H (22-30) mmol/L Anion Gap 12.0 (5-15) MEQ/L BUN 17 (7-17) mg/dL Creatinine 0.74 (0.52-1.04) mg/dL Estimated GFR > 60.0 ML/MIN Glucose 47 L* (74-106) mg/dL Calcium 9.8 (8.4-10.2) mg/dL Total Bilirubin 0.20 (0.2-1.3) mg/dL AST 26 (14-36) U/L ALT 14 (0-35) U/L Alkaline Phosphatase 33 L (38-126) U/L Troponin I < 0.012 (0.000-0.034) ng/mL NT-Pro-B Natriuret Pep 447 (0-1800) pg/mL Serum Total Protein 6.7 (6.3-8.2) g/dL Albumin 4.1 (3.5-5.0) g/dL Amylase 202 H (30-110) U/L Lipase 664 H (23-300) U/L 07/14/18 Range/Units 19:55 WBC 6.2 (4.0-10.5) K/mm3 RBC 3.02 L (4.1-5.4) M/mm3 Hgb 10.0 L (12.0-16.0) gm/dl Hct 30.5 L (35-47) % MCV 101.0 H (78-100) fl MCH 33.1 H (26-32) pg MCHC 32.8 (32-36) g/dl RDW 13.2 (11.5-14.0) % Plt Count 181 (150-450) K/mm3 MPV 9.0 (6-9.5) fl Gran % 38.6 (36.0-66.0) % Eos # (Auto) 0.19 (0-0.5) Absolute Lymphs (auto) 2.84 (1.0-4.6) Absolute Monos (auto) 0.77 (0.0-1.3) Lymphocytes % 45.7 H (24.0-44.0) % Monocytes % 12.4 H (0.0-12.0) % Eosinophils % 3.1 (0.00-5.0) % Basophils % 0.2 (0.0-0.4) % Absolute Granulocytes 2.40 (1.4-6.9) Basophils # 0.01 (0-0.4) PT (9.95-12.35) SECONDS INR (0.8-3.0) APTT (25.3-37.0) SECONDS D-Dimer (215-500) ng/mL Sodium (137-145) mmol/L Potassium (3.5-5.1) mmol/L Chloride (98-107) mmol/L Carbon Dioxide (22-30) mmol/L Anion Gap (5-15) MEQ/L BUN (7-17) mg/dL Creatinine (0.52-1.04) mg/dL Estimated GFR ML/MIN Glucose (74-106) mg/dL Calcium (8.4-10.2) mg/dL Total Bilirubin (0.2-1.3) mg/dL AST (14-36) U/L ALT (0-35) U/L Alkaline Phosphatase (38-126) U/L Troponin I (0.000-0.034) ng/mL NT-Pro-B Natriuret Pep (0-1800) pg/mL Serum Total Protein (6.3-8.2) g/dL Albumin (3.5-5.0) g/dL Amylase (30-110) U/L Lipase (23-300) U/L - Progress Progress: improved Air Movement: fair Progress Note: 07/14/18 21:19 87-year-old white female with history of cataracts, asthma, COPD, MD, ulcers, arthritis, degenerative disc disease, anxiety, depression, eating disorder. Who is obviously cachectic and this apparently is her normal state. Arrives with complaint of burning pain in her anterior chest symptoms for 3 weeks initially off-and-on but she states has been constant since this morning at about 6:00 she states it became more constant after lifting 1 pound weights. She states she has had some a mild shortness of breath no nausea no vomiting. Patient's EKG remarkable for sinus rhythm 84 bpm left axis deviation no acute ST or T wave changes patient's chemistry is remarkable for a glucose of 47 she has had an Accu-Chek which shows 75 at this time. Patient also with a potassium of 3.2 amylase and lipase are elevated with a amylase of 202 and a lipase of 664 anion gap is 12.0 troponin is normal at less than 0.012 patient's white count is 6.2 hemoglobin 10.0 hematocrit 30.5. Patient's Accu-Chek is rechecked and is now 88 that she did drink some Sprite. Unfortunately patient has an elevated d-dimer of 1327 Will plan on checking a CTA of the chest to rule out PE Will plan on discussing case with Dr. Caraballo, the patient's family physician once CT results are back I did order some normal saline to run at 100 mL per hour for now. I have offered patient morphine for pain she really doesn't want anything she has already received aspirin per medics. . . . 07/14/18 22:44 Patient is feeling better after morphine and Zofran. I've discussed the patient's case with Dr. Caraballo will place patient on observation diagnosis chest pain, pancreatitis,. Will continue serial troponins, IV normal saline at 100 mL per hour,. Morphine as needed for pain Zofran for nausea. . - Departure Time of Disposition: 22:45 Departure Disposition: Observation Clinical Impression: Chest pain Qualifiers: Chest pain type: unspecified Qualified Code(s): R07.9 - Chest pain, unspecified Pancreatitis Qualifiers: Chronicity: acute Pancreatitis type: unspecified pancreatitis type Acute pancreatitis complication: unspecified Qualified Code(s): K85.90 - Acute pancreatitis without necrosis or infection, unspecified Condition: Fair Critical Care Time: No Referrals: RADHA CARABALLO [Primary Care Provider] -
[2018-07-14 20:36] LABS: ALBUMIN 4.1 g/dL (3.5-5.0); ALKALINE PHOSPHATASE 33 U/L (38-126); AMYLASE 202 U/L (30-110); BLOOD UREA NITROGEN 17 mg/dL (7-17); CHLORIDE 94 mmol/L (98-107); Calcium 9.8 mg/dL (8.4-10.2); Carbon Dioxide 32 mmol/L (22-30); Creatinine 1 0.74 mg/dL (0.52-1.04); LIPASE 664 U/L (23-300); NT PRO BNP 447 pg/mL (0-1800); Potassium 3.2 mmol/L (3.5-5.1); SGOT/AST 26 U/L (14-36); SGPT/ALT 14 U/L (0-35); SODIUM 135 mmol/L (137-145); Total Protein 6.7 g/dL (6.3-8.2)
[2018-07-14 20:41] LABS: Glucose 47 mg/dL (74-106)
[2018-07-14 21:05] LABS: INR 0.92 (0.8-3.0)
[2018-07-14 21:07] LABS: PTT 24.4 SECONDS (25.3-37.0)
[2018-07-14] MEDS ORDERED: Sodium Chloride 0.9% 1000 ML 1,000 ML IV SCH (21:15)
[2018-07-14] MEDS ORDERED: Sodium Chloride 0.9% 1000 ML 1,000 ML ONE (21:15)
[2018-07-14] MEDS ORDERED: Zofran 4 MG/2 ML VIAL ONE (21:35)
[2018-07-14] MEDS ORDERED: MORPHINE SULFATE 2 MG INJ ONE (21:36)
[2018-07-14] MEDS ORDERED: MORPHINE SULFATE 2 MG INJ IV ONE (21:38)
[2018-07-14] MEDS ORDERED: Zofran 4 MG/2 ML VIAL IV ONE (21:38)
[2018-07-14] MEDS ORDERED: Zofran 4 MG/2 ML VIAL IV PRN (23:20)
[2018-07-14] MEDS ORDERED: DUONEB 0.5-3 MG/3 ml Neb IH PRN (23:20)
[2018-07-15] MEDS: MORPHINE SULFATE 2 MG INJ IV PRN ×4 (05:13→22:58)
[2018-07-15 05:46] LABS: BASOPHIL % 0.2 % (0.0-0.4); Basophil (Absolute #) 0.01 (0-0.4); Eosinophil % 2.7 % (0.00-5.0); Eosinophil (Absolute #) 0.13 (0-0.5); Granulocyte Absolute (ANC) 2.82 (1.4-6.9); Granulocytes % 59.7 % (36.0-66.0); Hematocrit 31.5 % (35-47); Hemoglobin 10.1 gm/dl (12.0-16.0); Lymphocyte (Absolute #) 1.27 (1.0-4.6); Lymphocytes % 26.8 % (24.0-44.0); Mean Cell Volume 101.6 fl (78-100); Mean Corpuscular Hgb Concent. 32.1 g/dl (32-36); Mean Platelet Volume 9.3 fl (6-9.5); Monocytes % 10.6 % (0.0-12.0); Platelet Count 176 K/mm3 (150-450); Red Cell Distribution Width 13.3 % (11.5-14.0); White Blood Count 4.7 K/mm3 (4.0-10.5)
[2018-07-15 05:48] LABS: Mean Corpuscular Hemoglobin 32.5 pg (26-32)
[2018-07-15 06:04] LABS: ALBUMIN 3.7 g/dL (3.5-5.0); ALKALINE PHOSPHATASE 33 U/L (38-126); ANION GAP 8.5 MEQ/L (5-15); BLOOD UREA NITROGEN 15 mg/dL (7-17); CHLORIDE 95 mmol/L (98-107); Calcium 9.1 mg/dL (8.4-10.2); Carbon Dioxide 34 mmol/L (22-30); Creatinine 1 0.63 mg/dL (0.52-1.04); Glucose 76 mg/dL (74-106); Potassium 3.7 mmol/L (3.5-5.1); SGOT/AST 26 U/L (14-36); SGPT/ALT 13 U/L (0-35); SODIUM 134 mmol/L (137-145); Total Protein 6.5 g/dL (6.3-8.2)
[2018-07-15] MEDS ORDERED: Sodium Chloride 3 ML UD NEBULES IH ONE (06:39)
[2018-07-15] MEDS: PULMICORT 0.5 MG/2 ML RESPULES IH SCH ×2 (07:14→20:01)
--- NOTE | 2018-07-15 08:41 | XRAY ---
Indication: Chest burning sensation. Elevated d-dimer. Multiple contiguous axial images obtained through the chest prior to and following 80 cc Isovue 370 contrast and PE protocol. Comparison: None There is satisfactory opacification of the pulmonary arteries to include the lobar branches. No filling defect/pulmonary embolus. Heart is not enlarged. Aorta is mildly arteriosclerotic without aneurysmal dilatation. [place] calcified node just anterior to the aortic arch. No pathologic mediastinal/hilar lymphadenopathy. Examination of the lung parenchyma appears hyperinflated with mild scattered fibrosis/scarring. No suspicious pulmonary mass, infiltrate, or effusion. Bony thorax demonstrates age-related osteopenia and previous T12-L2 kyphoplasty. Also remote appearing T9/T11 compression fractures and moderate dextroscoliosis centered at T12. Limited upper abdomen unremarkable. Impression: 1. Negative pulmonary embolus. 2. Hyperinflated lungs with fibrosis/scarring and mediastinal calcified node. No acute cardiopulmonary abnormalities. 3. Chronic bony findings as detailed above. Comment: Preliminary interpretation was made by [facility]. No discrepancy. CT DI 8.07
--- NOTE | 2018-07-15 08:44 | XRAY ---
Indication: Chest burning sensation. Comparison: May 27, 2018. Portable chest unchanged again hyperinflated and clear with distal left paratracheal calcified node. Heart is not enlarged. Stable osteopenia, scoliosis, and T11-L1 kyphoplasty. Impression: Stable nonacute chest with chronic features.
[2018-07-15] MEDS ORDERED: LASIX 20 MG PO PRN (08:50)
[2018-07-15] MEDS ORDERED: MEDICATION INTERVENTION PO SCH (09:00)
--- NOTE | 2018-07-15 09:12 | PCM.HP ---
History of Present Illness - Chief Complaint Chief Complaint: CHEST PAIN; PANCREATITIS History of Present Illness: is a 87 year old female pt at [place], formerly my pt at [facility], with COPD, chronic underweight, HTN, and osteoporosis who came in c/o 4d of generalized CP. She denies any radiation to me. Pain is burning, 7/10, with no assoc SOB, N, or diaphoresis. Pain is resolved wiht pain meds here. In ER she was found to have elevated lipase. CTA chest neg for PE, although D- dimer was elevated. Troponins are neg x 4. BS 47 on admission; 80s since then. Pt has never had pancreatitis before. She has been eating as usual (has little appetite). - Review of Systems Constitutional: Weakness, No Fever Cardiac: Chest Pain Abdominal/Gastrointestinal: Abdominal Pain, Constipation Musculoskeletal: Arthralgias All Other Systems: Reviewed and Negative Medications & Allergies Home Medications: Home Medication List Alendronate Sodium 70 mg [Fosamax 70 MG] 1 tab PO WEEKLY 07/14/18 [ History Confirmed 07/14/18] Ascorbic Acid 500 mg [Vitamin C 500 MG] 1 tab PO BID 07/14/18 [History Confirmed 07/14/18] Aspirin 81 gm Chew [Baby Aspirin 81 mg Chew] 81 mg PO DAILY 07/14/18 [ History Confirmed 07/14/18] Budesonide 0.5 mg/2 ml [Pulmicort 0.5 mg/2 ml Respules] 0.5 mg IH BID PRN 07/14/18 [History Confirmed 07/14/18] Furosemide 20 mg [Lasix 20 mg] 20 mg PO DAILY PRN 07/14/18 [History Confirmed 07/14/18] Lubiprostone [Amitiza] 8 mcg PO DAILY 07/14/18 [History Confirmed 07/14/18] Ranitidine HCl [Zantac 75] 150 mg PO BID 07/14/18 [History Confirmed 07/14/18] Metoprolol Tartrate 25 mg [Lopressor 25MG Tab] 25 tab PO BID 07/15/18 [ History Confirmed 07/15/18] Allergies/Adverse Reactions: Allergies Allergy/AdvReac Type Severity Reaction Status Date / Time Sulfa (Sulfonamide Allergy Severe Verified 07/14/18 19:34 Antibiotics) [Sulfa(Sulfonamide Antibiotics)] - Past Medical History Past Medical History: Yes Neurological History: No Pertinent History ENT History: Cataracts Cardiac History: No Pertinent History, Myocardial Infarction (IA) Respiratory History: Asthma, COPD Endocrine Medical History: No Pertinent History Musculoskelatal History: Arthritis, Degenerative Disk Disease, Fractures, Osteoporosis GI Medical History: Ulcer, Other History: No Pertinent History Pyscho-Social History: Anxiety, Depression, Eating Disorders Reproductive Disorders: No Pertinent History Comment: FREQUENT CONSTIPATION, kyphoscoliosis - Female History Hx Last Menstrual Period: menopausal Are you now?: No - Past Surgical History Past Surgical History: Yes Neuro Surgical History: No Pertinent History Cardiac History: No Pertinent History Respiratory Surgery: No Pertinent History GI Surgical History: No Pertinent History Genitourinary Surgical Hx: No Pertinent History Musculskeletal Surgical Hx: Orthopedic Surgery Female Surgical History: No Pertinent History Other Surgical History: right hip fracture - Social History Smoking Status: Never smoker Exposure to second hand smoke: No Alcohol: None Drug Use: none - Physical Exam Vital Signs: Vital Signs - 24 hr Temp Pulse Resp BP Pulse Ox 07/15/18 07:50 97.9 F 65 18 152/70 99 07/15/18 07:49 64 16 100 07/15/18 04:00 98 F 61 20 140/70 98 07/15/18 00:55 65 10 L 97 07/15/18 00:51 97 07/14/18 23:59 97.4 F 68 16 137/65 97 07/14/18 23:20 96 07/14/18 22:59 64 16 149/66 99 07/14/18 22:46 99 07/14/18 22:17 98.0 F 63 21 116/61 99 07/14/18 21:22 64 16 116/61 99 07/14/18 20:55 64 18 153/59 98 07/14/18 20:18 64 16 153/59 97 07/14/18 19:43 99 07/14/18 19:25 97.9 F 83 18 178/87 99 General Appearance: no apparent distress, alert, cachetic Neurologic Exam: oriented x 3, cooperative Eye Exam: eyes nml inspection Ears, Nose, Throat Exam: moist mucous membranes Neck Exam: normal inspection Respiratory Exam: normal breath sounds, lungs clear, No crackles/rales, No rhonchi, No wheezing Cardiovascular Exam: regular rate/rhythm, normal heart sounds, No murmur Gastrointestinal/Abdomen Exam: soft, distention (as usual), No normal bowel sounds (hyperactive), No tenderness, No mass, No guarding, No rebound Back Exam: normal inspection, No rash Extremity Exam: other (bandage medial RLE), No pedal edema, No swelling Skin Exam: normal color, warm, dry, No rash Results - Labs Lab/Micro Results: Accuchecks Date 07/15/18 Date 07/15/18 Time 00:00 Time 00:00 Accucheck Value: 76 Accucheck Value: 82 Accucheck Value: 83 Accucheck Value: 88 Accucheck Value: 75 Lab Results-Last 24 Hours 07/14/18 07/14/18 07/14/18 Range/Units 19:55 19:55 19:55 WBC 6.2 (4.0-10.5) K/mm3 RBC 3.02 L (4.1-5.4) M/mm3 Hgb 10.0 L (12.0-16.0) gm/dl Hct 30.5 L (35-47) % MCV 101.0 H (78-100) fl MCH 33.1 H (26-32) pg MCHC 32.8 (32-36) g/dl RDW 13.2 (11.5-14.0) % Plt Count 181 (150-450) K/mm3 MPV 9.0 (6-9.5) fl Gran % 38.6 (36.0-66.0) % Eos # (Auto) 0.19 (0-0.5) Absolute Lymphs (auto) 2.84 (1.0-4.6) Absolute Monos (auto) 0.77 (0.0-1.3) Lymphocytes % 45.7 H (24.0-44.0) % Monocytes % 12.4 H (0.0-12.0) % Eosinophils % 3.1 (0.00-5.0) % Basophils % 0.2 (0.0-0.4) % Absolute Granulocytes 2.40 (1.4-6.9) Basophils # 0.01 (0-0.4) PT 10.7 (9.95-12.35) SECONDS INR 0.92 (0.8-3.0) APTT 24.4 L (25.3-37.0) SECONDS D-Dimer 1327 H* (215-500) ng/mL Sodium 135 L (137-145) mmol/L Potassium 3.2 L (3.5-5.1) mmol/L Chloride 94 L (98-107) mmol/L Carbon Dioxide 32 H (22-30) mmol/L Anion Gap 12.0 (5-15) MEQ/L BUN 17 (7-17) mg/dL Creatinine 0.74 (0.52-1.04) mg/dL Estimated GFR > 60.0 ML/MIN Glucose 47 L* (74-106) mg/dL Calcium 9.8 (8.4-10.2) mg/dL Total Bilirubin 0.20 (0.2-1.3) mg/dL AST 26 (14-36) U/L ALT 14 (0-35) U/L Alkaline Phosphatase 33 L (38-126) U/L Troponin I (0.000-0.034) ng/mL NT-Pro-B Natriuret Pep 447 (0-1800) pg/mL Serum Total Protein 6.7 (6.3-8.2) g/dL Albumin 4.1 (3.5-5.0) g/dL Amylase 202 H (30-110) U/L Lipase 664 H (23-300) U/L 07/14/18 07/14/18 07/15/18 Range/Units 19:55 22:28 01:55 WBC (4.0-10.5) K/mm3 RBC (4.1-5.4) M/mm3 Hgb (12.0-16.0) gm/dl Hct (35-47) % MCV (78-100) fl MCH (26-32) pg MCHC (32-36) g/dl RDW (11.5-14.0) % Plt Count (150-450) K/mm3 MPV (6-9.5) fl Gran % (36.0-66.0) % Eos # (Auto) (0-0.5) Absolute Lymphs (auto) (1.0-4.6) Absolute Monos (auto) (0.0-1.3) Lymphocytes % (24.0-44.0) % Monocytes % (0.0-12.0) % Eosinophils % (0.00-5.0) % Basophils % (0.0-0.4) % Absolute Granulocytes (1.4-6.9) Basophils # (0-0.4) PT (9.95-12.35) SECONDS INR (0.8-3.0) APTT (25.3-37.0) SECONDS D-Dimer (215-500) ng/mL Sodium (137-145) mmol/L Potassium (3.5-5.1) mmol/L Chloride (98-107) mmol/L Carbon Dioxide (22-30) mmol/L Anion Gap (5-15) MEQ/L BUN (7-17) mg/dL Creatinine (0.52-1.04) mg/dL Estimated GFR ML/MIN Glucose (74-106) mg/dL Calcium (8.4-10.2) mg/dL Total Bilirubin (0.2-1.3) mg/dL AST (14-36) U/L ALT (0-35) U/L Alkaline Phosphatase (38-126) U/L Troponin I < 0.012 [employer] (0.000-0.034) ng/mL NT-Pro-B Natriuret Pep (0-1800) pg/mL Serum Total Protein (6.3-8.2) g/dL Albumin (3.5-5.0) g/dL Amylase (30-110) U/L Lipase (23-300) U/L 07/15/18 07/15/18 07/15/18 Range/Units 05:25 05:25 05:25 WBC 4.7 (4.0-10.5) K/mm3 RBC 3.10 L (4.1-5.4) M/mm3 Hgb 10.1 L (12.0-16.0) gm/dl Hct 31.5 L (35-47) % MCV 101.6 H (78-100) fl MCH 32.5 H (26-32) pg MCHC 32.1 (32-36) g/dl RDW 13.3 (11.5-14.0) % Plt Count 176 (150-450) K/mm3 MPV 9.3 (6-9.5) fl Gran % 59.7 (36.0-66.0) % Eos # (Auto) 0.13 (0-0.5) Absolute Lymphs (auto) 1.27 (1.0-4.6) Absolute Monos (auto) 0.50 (0.0-1.3) Lymphocytes % 26.8 (24.0-44.0) % Monocytes % 10.6 (0.0-12.0) % Eosinophils % 2.7 (0.00-5.0) % Basophils % 0.2 (0.0-0.4) % Absolute Granulocytes 2.82 (1.4-6.9) Basophils # 0.01 (0-0.4) PT (9.95-12.35) SECONDS INR (0.8-3.0) APTT (25.3-37.0) SECONDS D-Dimer (215-500) ng/mL Sodium 134 L (137-145) mmol/L Potassium 3.7 (3.5-5.1) mmol/L Chloride 95 L (98-107) mmol/L Carbon Dioxide 34 H (22-30) mmol/L Anion Gap 8.5 (5-15) MEQ/L BUN 15 (7-17) mg/dL Creatinine 0.63 (0.52-1.04) mg/dL Estimated GFR > 60.0 ML/MIN Glucose 76 (74-106) mg/dL Calcium 9.1 (8.4-10.2) mg/dL Total Bilirubin 0.20 (0.2-1.3) mg/dL AST 26 (14-36) U/L ALT 13 (0-35) U/L Alkaline Phosphatase 33 L (38-126) U/L Troponin I (0.000-0.034) ng/mL NT-Pro-B Natriuret Pep (0-1800) pg/mL Serum Total Protein 6.5 (6.3-8.2) g/dL Albumin 3.7 (3.5-5.0) g/dL Amylase (30-110) U/L Lipase (23-300) U/L Accuchecks Date 07/15/18 Date 07/15/18 Time 00:00 Time 00:00 Accucheck Value: 76 Accucheck Value: 82 Accucheck Value: 83 Accucheck Value: 88 Accucheck Value: 75 - Radiology Impressions Radiology Exams & Impressions: Radiology Procedures Category Date Time Status CHEST 1 VIEW (PORTABLE) Stat Exams 07/14/18 19:41 Completed CHEST WITH CONTRAST [CT] Stat Exams 07/14/18 21:14 Completed - Other Procedures and Tests Respiratory Therapy 07/15/18 00:55 Respiratory Therapy Assessment DAILY 07/15/18 07:00 Peak Expiratory Flow Rate ONCE Assessment/Plan (1) Chest pain Current Visit: Yes Status: Acute Qualifiers: Chest pain type: unspecified Qualified Code(s): R07.9 - Chest pain, unspecified Assessment & Plan: Troponins neg x 4. Code(s): R07.9 - CHEST PAIN, UNSPECIFIED (2) Pancreatitis Current Visit: Yes Status: Acute Qualifiers: Chronicity: acute Pancreatitis type: unspecified pancreatitis type Acute pancreatitis complication: unspecified Qualified Code(s): K85.90 - Acute pancreatitis without necrosis or infection, unspecified Assessment & Plan: Continue fluids, CLD. recheck lipase. Code(s): K85.90 - ACUTE PANCREATITIS WITHOUT NECROSIS OR INFECTION, UNSP (3) Constipation Current Visit: No Status: Acute Qualifiers: Constipation type: unspecified constipation type Assessment & Plan: Pt is on chronic med (amitiza) - may need miralax and stool softeners as well Code(s): K59.00 - CONSTIPATION, UNSPECIFIED (4) Vertebral compression fracture Current Visit: No Status: Chronic Code(s): M48.50XA - COLLAPSED VERTEBRA, NEC, SITE UNSP, INIT (5) Coronary arteriosclerosis Current Visit: No Status: Chronic Code(s): I25.10 - ATHSCL HEART DISEASE OF [place] CORONARY ARTERY W/O ANG PCTRS (6) Hypertensive disorder, systemic arterial Current Visit: No Status: Chronic Code(s): I27.2 - OTHER SECONDARY PULMONARY HYPERTENSION * DO NOT USE * (7) COPD (chronic obstructive pulmonary disease) Current Visit: Yes Status: Chronic Qualifiers: COPD type: unspecified COPD Qualified Code(s): J44.9 - Chronic obstructive pulmonary disease, unspecified (8) Open wound Current Visit: Yes Status: Acute Assessment & Plan: x 2 - PT to consult. Code(s): T14.8XXA - OTHER INJURY OF UNSPECIFIED BODY REGION, INITIAL ENCOUNTER
[2018-07-15] MEDS ORDERED: Colace 100 MG PO PRN (09:13)
[2018-07-15] MEDS: ECOTRIN 81 MG PO SCH (09:42)
[2018-07-15] MEDS: Pepcid 20 MG PO SCH ×2 (09:42→22:29)
[2018-07-15] MEDS: Lopressor 25MG Tab PO SCH ×2 (09:42→22:29)
[2018-07-15] MEDS: Miralax Powder 17GM PACKET PO SCH (09:43)
[2018-07-15] MEDS ORDERED: NON-FORMULARY ITEM (Ranitidine Hcl [Zantac 75] 150 MG) PO SCH (10:00)
[2018-07-15] MEDS ORDERED: BABY ASPIRIN 81 MG CHEW PO SCH (10:00)
[2018-07-15] MEDS ORDERED: LUBIPROSTONE 8 MCG PO SCH (10:00)
[2018-07-15] MEDS: Sodium Chloride 0.9% 1000 ML 1,000 ML IV SCH ×2 (10:55→23:02)
[2018-07-15] MEDS: PATIENT OWN MEDICATION PO SCH (15:02)
[2018-07-15] MEDS: BENADRYL 25 MG CAPSULE PO PRN (22:30)
[2018-07-16] MEDS: PULMICORT 0.5 MG/2 ML RESPULES IH SCH ×2 (06:50→20:38)
--- NOTE | 2018-07-16 08:56 | PCM.NOTE ---
Date and Time: 07/16/18 0853 Subjective Assessment: Pt has tolerated CLD. This morning started having intermittent 6/10 chest pressure, sub sternal, worse with moving and touching the area. - Review of Systems Constitutional: No Fever Cardiac: Chest Pain Objective Exam General Appearance: no apparent distress, alert, cachetic Neurologic Exam: oriented x 3, cooperative Skin Exam: normal color, warm, dry, No rash Respiratory Exam: normal breath sounds, lungs clear, other (mid sternum is ttp. no crepitus, no mass.), No crackles/rales, No rhonchi, No wheezing Cardiovascular Exam: regular rate/rhythm, normal heart sounds, No murmur Gastrointestinal/Abdomen Exam: soft, normal bowel sounds, distention, No tenderness Extremity Exam: other (dressing in place RLE), No pedal edema, No swelling Back Exam: normal inspection, No rash OBJECTIVE DATA Vital Signs: Vital Signs - 24 hr Temp Pulse Resp BP Pulse Ox 07/16/18 07:14 97.8 F 61 18 165/78 97 07/16/18 06:53 60 18 95 07/16/18 04:00 98.7 F 60 18 141/65 96 07/15/18 23:53 97.9 F 63 16 105/51 96 07/15/18 19:24 98.0 F 66 20 169/73 97 07/15/18 15:42 98.2 F 56 L 18 174/82 97 07/15/18 12:00 98.2 F 66 18 160/72 96 Pain Assessment - Last Documented Pain Intensity 6 Pain Scale Used 0-10 Pain Scale Intake and Output: Intake & Output 07/13/18 07/14/18 07/15/18 07/16/18 11:59 11:59 11:59 11:59 Intake Total 990 2715 Output Total 1550 2075 Balance -560 640 Weight 34.8 kg 35.8 kg Lab Results: Accuchecks Accucheck Value: 80 Accucheck Value: 85 Accucheck Value: 99 Accucheck Value: 97 Accucheck Value: 102 Accucheck Value: 107 Lab Results-Last 24 Hours 07/15/18 07/15/18 07/15/18 Range/Units 05:00 05:00 07:50 Hemoglobin A1c 5.44 (4.5-6.0) % Troponin I (0.000-0.034) ng/mL Lipase 211 (23-300) U/L Radiology Exams: Radiology Procedures Category Date Time Status CHEST 1 VIEW (PORTABLE) Stat Exams 07/14/18 19:41 Completed CHEST WITH CONTRAST [CT] Stat Exams 07/14/18 21:14 Completed Multi-Disciplinary Progress Notes: Multi-Disciplinary Progress Notes 07/15/18 15:30 Case Management Note by Karlene,[place] TALKED WITH COLT CAMPOS REGARDING NEEDS AT TIME OF DISCHARGE. PT LIVES AT [[facility] L[facility] ] AND PLANS TO RETURN THERE AT DISCHARGE AT PRE EPISODIC LEVEL. Initialized on 07/15/18 15:30 - END OF NOTE Assessment/Plan (1) Chest pain Current Visit: Yes Status: Acute Qualifiers: Chest pain type: unspecified Qualified Code(s): R07.9 - Chest pain, unspecified Assessment & Plan: Recurrent. Atypical. Will do EKG and set of 3 troponins. Code(s): R07.9 - CHEST PAIN, UNSPECIFIED (2) Pancreatitis Current Visit: Yes Status: Acute Qualifiers: Chronicity: acute Pancreatitis type: unspecified pancreatitis type Acute pancreatitis complication: unspecified Qualified Code(s): K85.90 - Acute pancreatitis without necrosis or infection, unspecified Assessment & Plan: lipase was back to normal yesterday - will increase diet and recheck in a.m. Code(s): K85.90 - ACUTE PANCREATITIS WITHOUT NECROSIS OR INFECTION, UNSP (3) Constipation Current Visit: No Status: Acute Qualifiers: Constipation type: unspecified constipation type Code(s): K59.00 - CONSTIPATION, UNSPECIFIED (4) Vertebral compression fracture Current Visit: No Status: Chronic Code(s): M48.50XA - COLLAPSED VERTEBRA, NEC, SITE UNSP, INIT (5) Coronary arteriosclerosis Current Visit: No Status: Chronic Code(s): I25.10 - ATHSCL HEART DISEASE OF [place] CORONARY ARTERY W/O ANG PCTRS (6) Hypertensive disorder, systemic arterial Current Visit: No Status: Chronic Assessment & Plan: BP labile - systolic bp up to 170 and down to 104. Code(s): I27.2 - OTHER SECONDARY PULMONARY HYPERTENSION * DO NOT USE * (7) COPD (chronic obstructive pulmonary disease) Current Visit: Yes Status: Chronic Qualifiers: COPD type: unspecified COPD Qualified Code(s): J44.9 - Chronic obstructive pulmonary disease, unspecified (8) Open wound Current Visit: Yes Status: Acute Assessment & Plan: PT consulted, thank you. Code(s): T14.8XXA - OTHER INJURY OF UNSPECIFIED BODY REGION, INITIAL ENCOUNTER
[2018-07-16] MEDS: Sodium Chloride 0.9% 1000 ML 1,000 ML IV SCH ×2 (09:04→21:30)
[2018-07-16] MEDS: ECOTRIN 81 MG PO SCH (10:22)
[2018-07-16] MEDS: Pepcid 20 MG PO SCH ×2 (10:22→21:31)
[2018-07-16] MEDS: Lopressor 25MG Tab PO SCH ×2 (10:22→21:31)
[2018-07-16] MEDS: PATIENT OWN MEDICATION PO SCH (10:22)
[2018-07-16] MEDS: Miralax Powder 17GM PACKET PO SCH (12:24)
[2018-07-16] MEDS: MORPHINE SULFATE 2 MG INJ IV PRN (17:40)
[2018-07-16] MEDS ORDERED: Sodium Chloride 3 ML UD NEBULES IH ONE (19:59)
[2018-07-16] MEDS: BENADRYL 25 MG CAPSULE PO PRN (21:33)
[2018-07-17] MEDS: MORPHINE SULFATE 2 MG INJ IV PRN (02:45)
[2018-07-17 05:47] LABS: Hematocrit 30.2 % (35-47); Hemoglobin 9.8 gm/dl (12.0-16.0); Mean Cell Volume 101.3 fl (78-100); Mean Corpuscular Hgb Concent. 32.5 g/dl (32-36); Mean Platelet Volume 9.4 fl (6-9.5); Platelet Count 165 K/mm3 (150-450); Red Blood Count 2.98 M/mm3 (4.1-5.4)
[2018-07-17 05:52] LABS: Mean Corpuscular Hemoglobin 32.8 pg (26-32)
[2018-07-17 06:27] LABS: ALKALINE PHOSPHATASE 36 U/L (38-126); ANION GAP 8.2 MEQ/L (5-15); BLOOD UREA NITROGEN 10 mg/dL (7-17); CHLORIDE 100 mmol/L (98-107); Calcium 8.4 mg/dL (8.4-10.2); Carbon Dioxide 28 mmol/L (22-30); Creatinine 1 0.49 mg/dL (0.52-1.04); Glucose 82 mg/dL (74-106); LIPASE 68 U/L (23-300); Potassium 3.8 mmol/L (3.5-5.1); SGOT/AST 23 U/L (14-36); SGPT/ALT 11 U/L (0-35); SODIUM 132 mmol/L (137-145); Total Protein 5.6 g/dL (6.3-8.2)
[2018-07-17] MEDS ORDERED: PULMICORT 0.5 MG/2 ML RESPULES IH SCH (07:00)
[2018-07-17] MEDS ORDERED: Sodium Chloride 3 ML UD NEBULES IH SCH (07:00)
--- NOTE | 2018-07-17 08:55 | PCM.NOTE ---
Date and Time: 07/17/18 0850 Subjective Assessment: Pt feels like maybe she ate too much yesterday as she started having increased epigastric/substernal pain. Fine at rest but exacerbated with movement. Just finished a bowl of cream of wheat. Last night ate some chicken, tomato soup, jello. When she first complained of the substernal pain yesterday, EKG and troponin were done - EKG with no ST changes and troponins negative x 3. - Review of Systems Constitutional: No Fever Abdominal/Gastrointestinal: Abdominal Pain Objective Exam General Appearance: no apparent distress, alert, cachetic Neurologic Exam: oriented x 3, cooperative Skin Exam: normal color, warm, dry, No rash Respiratory Exam: lungs clear, diminished breath sounds, No crackles/rales, No rhonchi, No wheezing Cardiovascular Exam: regular rate/rhythm, normal heart sounds, No murmur Gastrointestinal/Abdomen Exam: soft, distention (as usual), No normal bowel sounds (high pitched bowel sounds), No tenderness, No mass, No guarding, No rebound Extremity Exam: other (bandage distal RLE), No pedal edema, No swelling OBJECTIVE DATA Vital Signs: Vital Signs - 24 hr Temp Pulse Resp BP Pulse Ox 07/17/18 07:52 71 18 98 07/17/18 07:10 97.8 F 68 20 198/98 96 07/17/18 04:20 98.5 F 62 20 147/68 96 07/16/18 23:56 98.4 F 66 16 172/81 98 07/16/18 20:09 98.7 F 63 16 157/70 97 07/16/18 16:00 98.0 F 66 18 134/63 94 L 07/16/18 11:53 98.0 F 84 18 172/77 97 Pain Assessment - Last Documented Pain Intensity 8 Pain Scale Used [facility] Intake and Output: Intake & Output 07/14/18 07/15/18 07/16/18 07/17/18 11:59 11:59 11:59 11:59 Intake Total 990 2715 1878 Output Total 1550 2075 1150 Balance -560 640 728 Weight 34.8 kg 35.8 kg 36.8 kg Lab Results: Accuchecks Date 07/17/18 Date 07/16/18 Date 07/16/18 Time 04:20 Time 23:19 Time 20:00 Accucheck Value: 84 Accucheck Value: 98 Accucheck Value: 88 Accucheck Value: 145 Accucheck Value: 84 Lab Results-Last 24 Hours 07/16/18 07/16/18 07/16/18 Range/Units 09:14 12:18 15:00 WBC (4.0-10.5) K/mm3 RBC (4.1-5.4) M/mm3 Hgb (12.0-16.0) gm/dl Hct (35-47) % MCV (78-100) fl MCH (26-32) pg MCHC (32-36) g/dl RDW (11.5-14.0) % Plt Count (150-450) K/mm3 MPV (6-9.5) fl Sodium (137-145) mmol/L Potassium (3.5-5.1) mmol/L Chloride (98-107) mmol/L Carbon Dioxide (22-30) mmol/L Anion Gap (5-15) MEQ/L BUN (7-17) mg/dL Creatinine (0.52-1.04) mg/dL Estimated GFR ML/MIN Glucose (74-106) mg/dL Calcium (8.4-10.2) mg/dL Total Bilirubin (0.2-1.3) mg/dL AST (14-36) U/L ALT (0-35) U/L Alkaline Phosphatase (38-126) U/L Troponin I < 0.012 < 0.012 < 0.012 (0.000-0.034) ng/mL Serum Total Protein (6.3-8.2) g/dL Albumin (3.5-5.0) g/dL Lipase (23-300) U/L 07/17/18 07/17/18 Range/Units 05:25 05:25 WBC 4.0 (4.0-10.5) K/mm3 RBC 2.98 L (4.1-5.4) M/mm3 Hgb 9.8 L (12.0-16.0) gm/dl Hct 30.2 L (35-47) % MCV 101.3 H (78-100) fl MCH 32.8 H (26-32) pg MCHC 32.5 (32-36) g/dl RDW 13.0 (11.5-14.0) % Plt Count 165 (150-450) K/mm3 MPV 9.4 (6-9.5) fl Sodium 132 L (137-145) mmol/L Potassium 3.8 (3.5-5.1) mmol/L Chloride 100 (98-107) mmol/L Carbon Dioxide 28 (22-30) mmol/L Anion Gap 8.2 (5-15) MEQ/L BUN 10 (7-17) mg/dL Creatinine 0.49 L (0.52-1.04) mg/dL Estimated GFR > 60.0 ML/MIN Glucose 82 (74-106) mg/dL Calcium 8.4 (8.4-10.2) mg/dL Total Bilirubin 0.30 (0.2-1.3) mg/dL AST 23 (14-36) U/L ALT 11 (0-35) U/L Alkaline Phosphatase 36 L (38-126) U/L Troponin I (0.000-0.034) ng/mL Serum Total Protein 5.6 L (6.3-8.2) g/dL Albumin 3.0 L (3.5-5.0) g/dL Lipase 68 (23-300) U/L Radiology Exams: Radiology Procedures Category Date Time Status ABDOMEN 2 VIEW Stat Exams 07/17/18 Ordered Multi-Disciplinary Progress Notes: Multi-Disciplinary Progress Notes 07/16/18 22:05 Respiratory Note by Tanya Holt PT STATES SHE ONLY TAKES PULMICORT 0.5MG ONCE A DAY IN THE MORNING. CHANGED TO DAILY FROM TWICE ADAY. Initialized on 07/16/18 22:05 - END OF NOTE 07/16/18 16:47 Physical Therapy Note by Joelle Hitchcock WOUND DRESSING CHANGE (PATIENT STATED ROUTINE DAY FOR CHANGE WAS TODAY) - WOUND CLEANSED WITH HIBICLENS/STERILE WATER MIX AND GAUZE - RE-APPLIED CALCIUM ALGINATE PRIMARY DRESSING WITH FOAM ISLAND DRESSING COVER. SMALL AMOUNT THIN YELLOW SLOUGH REMOVED FROM WOUND BED WITH WET GAUZE. WOUND BED 90% PINK. CONTINUE PREVENTATIVE SKIN CARE WITH BARRIER OINTMENT TOPICAL BID AND PRN TO COCCYX. Initialized on 07/16/18 16:47 - END OF NOTE Assessment/Plan (1) Abdominal pain Current Visit: Yes Status: Acute Qualifiers: Abdominal location: epigastric Qualified Code(s): R10.13 - Epigastric pain Assessment & Plan: In light of her exam today (high pitched BS) I suspect ileus. XR abd. Will also add IV PPI to her medicines. Also consider gastric issues, such as peptic ulcer disease, but pt would be at high risk for procedures. Will add carafate as well. If today's medication additions provide relief, would consider just discharging to home on same. Code(s): R10.9 - UNSPECIFIED ABDOMINAL PAIN (2) Chest pain Current Visit: Yes Status: Acute Onset Date: ~07/14/18 Qualifiers: Chest pain type: unspecified Qualified Code(s): R07.9 - Chest pain, unspecified Code(s): R07.9 - CHEST PAIN, UNSPECIFIED (3) Hypertensive disorder, systemic arterial Current Visit: No Status: Chronic Assessment & Plan: Will have staff recheck BP. Has been labile - from 134 to 198 systolic. Do not want her BP too low as she is at very high risk for falls. Code(s): I27.2 - OTHER SECONDARY PULMONARY HYPERTENSION * DO NOT USE * (4) Pancreatitis Current Visit: Yes Status: Resolved Onset Date: ~07/14/18 Qualifiers: Chronicity: acute Pancreatitis type: unspecified pancreatitis type Acute pancreatitis complication: unspecified Qualified Code(s): K85.90 - Acute pancreatitis without necrosis or infection, unspecified Assessment & Plan: lipase wnl this morning. However she is still having pain. Code(s): K85.90 - ACUTE PANCREATITIS WITHOUT NECROSIS OR INFECTION, UNSP (5) Constipation Current Visit: No Status: Chronic Qualifiers: Constipation type: unspecified constipation type Code(s): K59.00 - CONSTIPATION, UNSPECIFIED (6) Vertebral compression fracture Current Visit: No Status: Chronic Code(s): M48.50XA - COLLAPSED VERTEBRA, NEC, SITE UNSP, INIT (7) Coronary arteriosclerosis Current Visit: No Status: Chronic Code(s): I25.10 - ATHSCL HEART DISEASE OF [place] CORONARY ARTERY W/O ANG PCTRS (8) COPD (chronic obstructive pulmonary disease) Current Visit: Yes Status: Chronic Onset Date: ~07/14/18 Qualifiers: COPD type: unspecified COPD Qualified Code(s): J44.9 - Chronic obstructive pulmonary disease, unspecified (9) Open wound Current Visit: Yes Status: Acute Onset Date: ~07/14/18 Assessment & Plan: PT consulted. Code(s): T14.8XXA - OTHER INJURY OF UNSPECIFIED BODY REGION, INITIAL ENCOUNTER
[2018-07-17] MEDS: Sodium Chloride 0.9% 1000 ML 1,000 ML IV SCH (09:07)
--- NOTE | 2018-07-17 09:57 | XRAY ---
Indication: Abdomen pain. Abnormal bowel sounds. No bowel movements 4 days. Comparison: [facility] November 08, 2015. 2 views of the abdomen again demonstrates mild diffuse air distended bowel loops without focal dilatation, obstruction, fecal stasis, or free air. Solid organs remain obscured. Stable pelvic phleboliths and small midline calcified uterine fibroid. Osseous structures again demonstrates osteopenia, mild/moderate multilevel degenerative spondylosis, and partially visualized right hip orthopedic hardware. There has been interval T11-L1 vertebroplasty. Impression: Again nonspecific air distended bowel loops without focal dilatation, obstruction, or fecal stasis.
[2018-07-17] MEDS ORDERED: PROTONIX 40 MG IV IV SCH (10:00)
[2018-07-17] MEDS: ECOTRIN 81 MG PO SCH (10:21)
[2018-07-17] MEDS: Lopressor 25MG Tab PO SCH (10:21)
[2018-07-17] MEDS: Miralax Powder 17GM PACKET PO SCH (10:21)
[2018-07-17] MEDS: PATIENT OWN MEDICATION PO SCH (10:22)
[2018-07-17] MEDS: Pepcid 20 MG PO SCH (10:23)
[2018-07-17] MEDS ORDERED: Carafate 1 GM PO SCH (11:30)
--- NOTE | 2018-07-17 15:30 | PCM.DS ---
Discharge Summary Date of Admission: 07/15/18 09:07 Admitting Physician: RADHA ZEPEDA Primary Care Provider: RADHA ZEPEDA Allergies Allergies Sulfa (Sulfonamide Antibiotics) [Sulfa(Sulfonamide Antibiotics)] Allergy (Severe , Verified 07/14/18 19:34) Hospital Summary - Hospital Course Hospital Course: Pt is 87 yo female pt of mine from [facility], now living at [facility], with hx malnutrition, hypertension, and COPD who was admitted through the ER with CP and pancreatitis. Did have a previous episode of pancreatitis. Her lipase was elevated over 600 but rapidly decreased to the normal range by the next morning with IVF and CLD. Her initial troponins were neg x 5. The next morning she was c/o more substernal chest pain and an EKG and 3 troponins were repeated (all negative). Today she said she thought she ate too much yesterday. Was still c/o epigastric/substernal pain this afternoon. I did start her on IV protonix (40mg x 1) and carafate today. She is feeling better this afternoon and would like to go home. - Vitals & Intake/Output Vital Signs: Vital Signs Temperature 97.9 F 07/17/18 11:26 Pulse Rate 65 07/17/18 11:26 Respiratory Rate 18 07/17/18 11:26 Blood Pressure 154/67 07/17/18 11:26 O2 Sat by Pulse Oximetry 97 07/17/18 11:26 Intake & Output: Intake & Output 07/15/18 07/16/18 07/17/18 07/18/18 11:59 11:59 11:59 11:59 Intake Total 990 2715 1878 Output Total 1550 2075 1150 Balance -560 640 728 Weight 34.8 kg 35.8 kg 36.8 kg - Lab Result Diagrams: 07/17/18 05:25 07/17/18 05:25 Lab Results-Last 24 Hrs: Accuchecks Date 07/17/18 Date 07/17/18 Date 07/17/18 Date 07/16/18 Date 07/16/18 Time 12:00 Time 04:20 Time 23:19 Time 20:00 Accucheck Value: 118 Accucheck Value: 92 Accucheck Value: 84 Accucheck Value: 98 Accucheck Value: 88 Accucheck Value: 145 Lab Results-Last 24 Hours 07/16/18 07/17/18 07/17/18 Range/Units 15:00 05:25 05:25 WBC 4.0 (4.0-10.5) K/mm3 RBC 2.98 L (4.1-5.4) M/mm3 Hgb 9.8 L (12.0-16.0) gm/dl Hct 30.2 L (35-47) % MCV 101.3 H (78-100) fl MCH 32.8 H (26-32) pg MCHC 32.5 (32-36) g/dl RDW 13.0 (11.5-14.0) % Plt Count 165 (150-450) K/mm3 MPV 9.4 (6-9.5) fl Sodium 132 L (137-145) mmol/L Potassium 3.8 (3.5-5.1) mmol/L Chloride 100 (98-107) mmol/L Carbon Dioxide 28 (22-30) mmol/L Anion Gap 8.2 (5-15) MEQ/L BUN 10 (7-17) mg/dL Creatinine 0.49 L (0.52-1.04) mg/dL Estimated GFR > 60.0 ML/MIN Glucose 82 (74-106) mg/dL Calcium 8.4 (8.4-10.2) mg/dL Total Bilirubin 0.30 (0.2-1.3) mg/dL AST 23 (14-36) U/L ALT 11 (0-35) U/L Alkaline Phosphatase 36 L (38-126) U/L Troponin I < 0.012 (0.000-0.034) ng/mL Serum Total Protein 5.6 L (6.3-8.2) g/dL Albumin 3.0 L (3.5-5.0) g/dL Lipase 68 (23-300) U/L Micro Results-Entire Visit: Accuchecks Date 07/17/18 Date 07/17/18 Date 07/17/18 Date 07/16/18 Date 07/16/18 Time 12:00 Time 04:20 Time 23:19 Time 20:00 Accucheck Value: 118 Accucheck Value: 92 Accucheck Value: 84 Accucheck Value: 98 Accucheck Value: 88 Accucheck Value: 145 - Radiology Exams Ordered Rad Exams-Entire Visit: Radiology Procedures Category Date Time Status ABDOMEN 2 VIEW Stat Exams 07/17/18 09:36 Completed - Procedures and Test Procedures and Tests throughout Hospitalization: Therapy Orders & Screens 07/15/18 00:29 PT Screen per Nursing Assess Comment: Protocol Order Physician Instructions: Greater than 3 points order PT Admission Screenin Reason For Exam: Triggered on Admission Diagnosis: chest pain r/ol Open Wound/Cellutlitis/Pressure Ulcers: Yes Acute Fx/ORIF/Change in wt bearing status: No Severe MUSCULOSKELETAL pain: No ADL Dysfunction: Yes Acute CVA w/Hemiparesis/Hemiplegia: No Decreased Functional Mobility/Strength: Yes Sprain/Strain: No Acute Post-op Mobility Dysfunction: No Total Points: 9 RT Screen per Nursing Assess ONCE Comment: Protocol Order Physician Instructions: Greater than 3 points order RT Admission Screen Reason For Exam: Triggered on Admission Diagnosis: chest pain r/ol Diagnosis: chest pain r/ol Pneumonia: No Home O2: No Asthma: Yes CHF: No Home CPAP/BIPAP: No Home Nebs/MDI: Yes Total Points: 9 07/15/18 00:55 Respiratory Therapy Assessment DAILY Comment: Diagnosis: chest pain r/ol 07/15/18 07:00 Peak Expiratory Flow Rate ONCE Comment: Reason For Exam: Diagnosis: chest pain r/ol 07/15/18 09:07 PT Eval & Treat (MD Order) ROUTINE Reason for Eval:: wounds on RLE and tailbone, seen at [facility] woundcare Diagnosis: CHEST PAIN; PANCREATITIS 07/16/18 08:51 EKG STAT Comment: Diagnosis: CHEST PAIN; PANCREATITIS Discharge Exam General Appearance: no apparent distress, alert, cachetic, other (exam done this a.m.) Neurologic Exam: oriented x 3, cooperative Skin Exam: normal color, warm, dry, No rash Ears, Nose, Throat Exam: moist mucous membranes Neck Exam: normal inspection Respiratory Exam: lungs clear, diminished breath sounds, No crackles/rales, No rhonchi, No wheezing Cardiovascular Exam: regular rate/rhythm, normal heart sounds, No murmur Gastrointestinal/Abdomen Exam: soft, normal bowel sounds, distention, No tenderness Extremity Exam: other (bandage present distal RLE), No pedal edema, No swelling Back Exam: normal inspection, No rash Final Diagnosis/Problem List - Final Discharge Diagnosis/Problem (1) Abdominal pain Current Visit: Yes Status: Acute Onset Date: ~07/14/18 Assessment & Plan: Improved. Home on PPI and carafate x 1 wk. (2) Chest pain Current Visit: Yes Status: Acute Onset Date: ~07/14/18 Assessment & Plan: IA has been ruled out. Musculoskeletal (worse with moving). observe; I expect it to diminish over the next few days. (3) Hypertensive disorder, systemic arterial Current Visit: No Status: Chronic Assessment & Plan: Has some elevated BP here, but several were 104-130s systolic. Will not make BP changes at this time as she is at high risk for falls. (4) Pancreatitis Current Visit: Yes Status: Resolved Onset Date: ~07/14/18 (5) Constipation Current Visit: No Status: Chronic Onset Date: ~07/14/18 (6) Vertebral compression fracture Current Visit: No Status: Chronic (7) Coronary arteriosclerosis Current Visit: No Status: Chronic (8) COPD (chronic obstructive pulmonary disease) Current Visit: Yes Status: Chronic Onset Date: ~07/14/18 (9) Open wound Current Visit: Yes Status: Acute Onset Date: ~07/14/18 Assessment & Plan: Continue wound care at [facility]. - Discharge Disposition: Home, Self-Care Condition: Fair Prescriptions: New Sucralfate 1 gm [Carafate 1 GM] 1 g PO ACHS #28 tablet Omeprazole 20 MG [Prilosec 20 mg] 20 mg PO DAILY #37 capsule.dr Continue Furosemide 20 mg [Lasix 20 mg] 20 mg PO DAILY PRN PRN Reason: fluid retention Aspirin 81 gm Chew [Baby Aspirin 81 mg Chew] 81 mg PO DAILY Ranitidine HCl [Zantac 75] 150 mg PO BID Lubiprostone [Amitiza] 8 mcg PO DAILY Budesonide 0.5 mg/2 ml [Pulmicort 0.5 mg/2 ml Respules] 0.5 mg IH BID PRN Ascorbic Acid 500 mg [Vitamin C 500 MG] 1 tab PO BID Metoprolol Tartrate 25 mg [Lopressor 25MG Tab] 25 tab PO BID Discontinued Alendronate Sodium 70 mg [Fosamax 70 MG] 1 tab PO WEEKLY Follow up with: RADHA ZEPEDA [Primary Care Provider] - 07/24/18 10:00 am
[2018-07-17 15:46] VITALS: BP 182/79; PULSE 64; O2SAT 100
== END 2018-07-17 16:00 | disposition home or self-care (01) | DRG 391 ==
LOC: ED 19:19 → MED SURG 23:08 → INTOOBSV 23:08 → OBSVTOIN 07-15 09:07
PROVIDERS: ADMIT Family Medicine; ATTEND Family Medicine
DX: R10.9 Unspecified abdominal pain (principal); K85.90 Acute pancreatitis without necrosis or infection, unspecified; K86.1 Other chronic pancreatitis; M48.50XA Collapsed vertebra, not elsewhere classified, site unspecified, initial encounter for fracture; R07.9 Chest pain, unspecified; J45.909 Unspecified asthma, uncomplicated; I10 Essential (primary) hypertension; K59.00 Constipation, unspecified; T14.8XXA Other injury of unspecified body region, initial encounter; J44.9 Chronic obstructive pulmonary disease, unspecified; I25.2 Old myocardial infarction; M19.90 Unspecified osteoarthritis, unspecified site; M81.0 Age-related osteoporosis without current pathological fracture; F41.9 Anxiety disorder, unspecified; I25.10 Atherosclerotic heart disease of native coronary artery without angina pectoris; F32.9 Major depressive disorder, single episode, unspecified; M41.9 Scoliosis, unspecified; M79.89 Other specified soft tissue disorders; Z79.899 Other long term (current) drug therapy
CPT/HCPCS: 36000; 36415; 71045; 71260; 74021; 80053; 82150; 82962; 83036; 83690; 83880; 84484; 85025; 85027; 85379; 85610; 85730; 93005; 93041; 94150; 94640; 94760; 96360; 96361; 96374; 96375; 99285; J2270; J2405; A9270-GY; G0378

== ENCOUNTER 2018-09-10 16:56 | Emergency (ER) | payer MEDICARE ==
[2018-09-10] MEDS ORDERED: TORAdol 30 mg Injection IM ONE (17:35)
--- NOTE | 2018-09-10 17:39 | ERPHSYRPT ---
- History of Present Illness Time Seen by Provider: 09/10/18 17:01 Source: patient, family Patient Subjective Stated Complaint: states was reaching in closet for a steel hanger last saturday and developed lower back pain. Triage Nursing Assessment: to room per w/c. skin w/d, color pale, resp easy. patient guarding back, grasping at back. is able to stand and get on cot with one assist. Physician History: reaching for a steel hanger with clothes on 5 days ago; developed pain post upper right chest; no sob; no hemoptosis; no numbness or weakness arms or legs; no fever; worse when moves; ;no fall Timing/Duration: day(s) (5), sudden, worse Method of Injury: lifting Quality: sharp Back Pain Location: T-spine (upper right post) Severity of Pain-Max: moderate (7) Severity of Pain-Current: moderate (7) Modifying Factors: Improves With: immobilization (helps), movement (aggravates) Associated Symptoms: denies symptoms Previous symptoms: no prior history Allergies/Adverse Reactions: Sulfa (Sulfonamide Antibiotics) [Sulfa(Sulfonamide Antibiotics)] Allergy (Severe , Verified 09/10/18 17:03) Home Medications: Ascorbic Acid 500 mg [Vitamin C 500 MG] 1 tab PO BID 07/14/18 [History] Aspirin 81 gm Chew [Baby Aspirin 81 mg Chew] 81 mg PO DAILY 07/14/18 [ History] Budesonide 0.5 mg/2 ml [Pulmicort 0.5 mg/2 ml Respules] 0.5 mg IH BID PRN 07/14/18 [History] Furosemide 20 mg [Lasix 20 mg] 20 mg PO DAILY PRN 07/14/18 [History] Lubiprostone [Amitiza] 8 mcg PO DAILY 07/14/18 [History] Ranitidine HCl [Zantac 75] 150 mg PO BID 07/14/18 [History] Metoprolol Tartrate 25 mg [Lopressor 25MG Tab] 25 tab PO BID 07/15/18 [ History] Hx Tetanus, Diphtheria Vaccination/Date Given: Yes Hx Influenza Vaccination/Date Given: No Hx Pneumococcal Vaccination/Date Given: Yes - Review of Systems Constitutional: No Symptoms Eyes: No Symptoms Ears, Nose, & Throat: No Symptoms Respiratory: No Cough, No Dyspnea, No Wheezing Cardiac: No Chest Pain, No Palpitations, No Syncope Abdominal/Gastrointestinal: No Abdominal Pain, No Nausea, No Vomiting, No Diarrhea Genitourinary Symptoms: No Symptoms Musculoskeletal: Back Pain (upper right post), No Fall, No Injury Skin: No Symptoms Neurological: No Symptoms Psychological: No Symptoms - Past Medical History Pertinent Past Medical History: Yes Neurological History: No Pertinent History ENT History: Cataracts Cardiac History: No Pertinent History, Myocardial Infarction ([place]) Respiratory History: Asthma, COPD Endocrine Medical History: No Pertinent History Musculoskeletal History: Arthritis, Degenerative Disk Disease, Fractures, Osteoporosis GI Medical History: Ulcer, Other History: No Pertinent History Psycho-Social History: Anxiety, Depression, Eating Disorders Female Reproductive Disorders: No Pertinent History Other Medical History: FREQUENT CONSTIPATION, kyphoscoliosis - Past Surgical History Past Surgical History: Yes Neuro Surgical History: No Pertinent History Cardiac: No Pertinent History Respiratory: No Pertinent History Gastrointestinal: No Pertinent History Genitourinary: No Pertinent History Musculoskeletal: Orthopedic Surgery Female Surgical History: No Pertinent History Other Surgical History: right hip fracture - Social History Smoking Status: Never smoker Exposure to second hand smoke: No Alcohol Use: None Drug Use: none Patient Lives Alone: No Significant Family History: no pertinent family hx - Female History Hx Now: No - Nursing Vital Signs Nursing Vital Signs: Initial Vital Signs Temperature 97.4 F 09/10/18 17:01 Pulse Rate 61 09/10/18 17:01 Respiratory Rate 16 09/10/18 17:01 Blood Pressure 181/90 09/10/18 17:01 O2 Sat by Pulse Oximetry 100 09/10/18 17:01 Pain Scale Pain Intensity 5 - Physical Exam General Appearance: moderate distress, alert, thin, other (frail) Eye Exam: PERRL/EOMI, eyes nml inspection Ears, Nose, Throat Exam: normal ENT inspection, TMs normal, pharynx normal, moist mucous membranes Neck Exam: normal inspection, non-tender, supple, full range of motion, No meningismus, No JVD Respiratory Exam: lungs clear, airway intact, diminished breath sounds, No normal breath sounds, No chest tenderness, No respiratory distress, No crackles/ rales, No rhonchi, No wheezing Cardiovascular Exam: regular rate/rhythm, normal heart sounds, normal peripheral pulses, capillary refill 2-3 sec, No murmur Gastrointestinal Exam: soft, normal bowel sounds, No tenderness, No guarding Pelvic Exam: deferred Rectal Exam: deferred Back Exam: No normal inspection, No normal range of motion (severe kyphoscoliosis; tender post upper ribs right near midline), No CVA tenderness, No vertebral tenderness, No rash, No muscle spasm Extremity Exam: normal inspection, normal range of motion, pelvis stable, No vincenzo's sign, No pedal edema Peripheral Pulses: carotid (R): 4+, carotid (L): 4+, femoral (R): 4+, femoral (L ): 4+ Neurologic Exam: alert, oriented x 3, cooperative, piece dyer II-XII nml as tested, sensation nml Skin Exam: normal color, warm, dry, No rash, No petechiae SpO2 Interpretation: normal SpO2: 100 Oxygen Delivery: Room Air - Course Nursing assessment & vital signs reviewed: Yes - Radiology Exams Chest X-ray Interpretation: Interpreted by me, No Fracture, No Pneumonia, No Pneumothorax, Nml Heart Size, Other (aging chest) T-Spine X-ray Interpretation: Interpreted by me, Negative (for acute fracture; old compression T spine) Ordered Tests: Active Orders 24 hr Category Date Time Status Pulse Oximetry (ED) STAT Care 09/10/18 17:32 Active CHEST 2 VIEWS (PA AND LAT) Stat Exams 09/10/18 17:31 Taken THORACIC SPINE (AP,LAT,SWIMM) Stat Exams 09/10/18 17:31 Taken Medication Summary Discontinued Medications Generic Name Dose Route Start Last Admin Trade Name Elvis PRN Reason Stop Dose Admin Ketorolac Tromethamine 15 mg 09/10/18 17:35 09/10/18 18:02 Toradol 30 Mg Injection IM 09/10/18 17:36 15 mg STAT ONE Administration Ketorolac Tromethamine Confirm 09/10/18 17:40 Toradol 30 Mg Injection Administered 09/10/18 17:41 Dose 30 mg .ROUTE .STK-MED ONE - Progress Progress: improved, re-examined (after xr and meds) Progress Note: 09/10/18 17:38 discussed medicating patient with relative who is an IM physician and decided best option for the patient was 15 mg Toradol IM 09/10/18 18:37 reviewed xr and discussed treatment plan; instructions given Counseled pt/family regarding: diagnosis, need for follow-up, rad results - Departure Time of Disposition: 18:38 Departure Disposition: Home Clinical Impression: acute upper back pain right Condition: Stable Critical Care Time: No Referrals: RADHA ZEPEDA [Primary Care Provider] - Instructions: Upper Back Pain Additional Instructions: rest; follow up lmd recheck Back pain instructions. Rest, ice x 24-48 hours, then warm compresses; no heavy lifting (>20#'s) x 3-5 days; call [facility] or [facility] Med doctor in am for follow up appointment and or referral as needed. Return if problems. Take meds as prescribed. Follow-up with family doctor as directed. Call for appointment. Return if any problems. If you smoke please stop. Call or follow up with your family doctor for assistance if you need it to stop. Please wear your seatbelt when driving. Have a nice day. Thank you for allowing us to participate in your care today. :o) Dr Jonah Mitchell Prescriptions: Naproxen 500 mg [Naprosyn 500 MG] 500 mg PO BID #14 tablet
[2018-09-10] MEDS ORDERED: TORAdol 30 mg Injection ONE (17:40)
[2018-09-10 18:29] VITALS: BP 167/90; PULSE 63
[2018-09-10 18:37] VITALS: O2SAT 100
--- NOTE | 2018-09-11 08:40 | XRAY ---
Indication: Right back pain following fall. Comparison: July 14, 2018. PA/lateral chest remains hyperinflated and clear. Heart is not enlarged with stable distal left paratracheal calcified node. Bony thorax again demonstrates osteopenia, scoliosis, T11-L1 kyphoplasty, and remote T8/T10 compression fractures. Impression: Stable nonacute hyperinflated chest with chronic features.
--- NOTE | 2018-09-11 08:44 | XRAY ---
Indication: Right back pain following fall. Comparison: CT chest July 14, 2018. AP/lateral thoracic spine demonstrates new remote-appearing T7 superior endplate fracture with approximately 25% height loss. Stable osteopenia, scoliosis, T11-L1 kyphoplasty, and remote T8/T10/L2 compression fractures. Chest reported separately.
== END 2018-09-10 19:00 | disposition home or self-care (01) ==
LOC: ED 16:56
DX: M54.6 Pain in thoracic spine (principal); Z79.899 Other long term (current) drug therapy; X50.1XXA Overexertion from prolonged static or awkward postures, initial encounter; Y93.79 Activity, other specified sports and athletics; Y92.009 Unspecified place in unspecified non-institutional (private) residence as the place of occurrence of the external cause
CPT/HCPCS: 71046; 72072; 96372; 99284; J1885

== ENCOUNTER 2019-05-06 14:48 | Emergency (ER) | payer MEDICARE | END 2019-05-06 20:14 | disposition home or self-care (01) | LOC: ED 14:48 ==

== ENCOUNTER 2020-04-04 10:52 | Emergency (ER) | payer MEDICARE ==
--- NOTE | 2020-04-04 10:58 | ERPHSYRPT ---
- History of Present Illness Time Seen by Provider: 04/04/20 10:58 Source: patient Exam Limitations: no limitations Physician History: This is an 89-year-old white female who aids with a walker and was ambulating normally for her up until 3 days ago. At that time she noticed some pain in her bilateral lower extremities from the knees distally. She denies falling she denies injury of any kind, she denies fevers. Patient is not on any anticoagulation therapy. Patient arrives to the emergency department for evaluation of her bilateral lower extremity pain Method of Injury: other (No injury) Occurred: days ago (3) Quality: aching Severity of Pain-Max: moderate Severity of Pain-Current: moderate Lower Extremities Pain: leg: bilateral, knee: bilateral, foot: bilateral, ankle: bilateral Modifying Factors: Improves With: movement Associated Symptoms: other (Hurts to bear weight and ambulate) Allergies/Adverse Reactions: Sulfa (Sulfonamide Antibiotics) [Sulfa(Sulfonamide Antibiotics)] Allergy (Severe, Verified 04/04/20 11:08) Home Medications: Ascorbic Acid 500 mg [Vitamin C 500 MG] 1 tab PO BID 07/14/18 [History] Aspirin 81 gm Chew [Baby Aspirin 81 mg Chew] 81 mg PO DAILY 07/14/18 [His tory] Budesonide 0.5 mg/2 ml [Pulmicort 0.5 mg/2 ml Respules] 0.5 mg IH BID PRN 07/14/18 [History] Furosemide 20 mg [Lasix 20 mg] 20 mg PO DAILY PRN 07/14/18 [History] Lubiprostone [Amitiza] 8 mcg PO DAILY 07/14/18 [History] raNITIdine HCL [Zantac 75] 150 mg PO BID 07/14/18 [History] Metoprolol Tartrate 25 mg [Lopressor 25MG Tab] 25 tab PO BID 07/15/18 [History] Hx Tetanus, Diphtheria Vaccination/Date Given: Yes Hx Influenza Vaccination/Date Given: No Hx Pneumococcal Vaccination/Date Given: Yes Travel Risk - International Travel Have you traveled outside of the country in past 3 weeks: No - Coronavirus Screening Are you exhibiting any of the following symptoms?: No Close contact with a COVID-19 positive Pt in past 14-21 Days: No - Review of Systems Constitutional: No Symptoms Eyes: No Symptoms Ears, Nose, & Throat: No Symptoms Respiratory: No Symptoms Cardiac: No Symptoms Abdominal/Gastrointestinal: No Symptoms Genitourinary Symptoms: No Symptoms (No areas of) Musculoskeletal: Other (Bilateral lower extremity pain bilateral knees distally) Skin: No Symptoms Neurological: No Symptoms Psychological: No Symptoms Endocrine: No Symptoms Hematologic/Lymphatic: No Symptoms Immunological/Allergic: No Symptoms All Other Systems: Reviewed and Negative - Past Medical History Pertinent Past Medical History: Yes Neurological History: No Pertinent History ENT History: Cataracts Cardiac History: No Pertinent History, Myocardial Infarction ([place]) Respiratory History: Asthma, COPD Endocrine Medical History: No Pertinent History Musculoskeletal History: Arthritis, Degenerative Disk Disease, Fractures, Osteoporosis GI Medical History: Ulcer, Other History: No Pertinent History Psycho-Social History: Anxiety, Depression, Eating Disorders Female Reproductive Disorders: No Pertinent History Other Medical History: FREQUENT CONSTIPATION, kyphoscoliosis - Past Surgical History Past Surgical History: Yes Neuro Surgical History: No Pertinent History Cardiac: No Pertinent History Respiratory: No Pertinent History Gastrointestinal: No Pertinent History Genitourinary: No Pertinent History Musculoskeletal: Orthopedic Surgery Female Surgical History: No Pertinent History Other Surgical History: right hip fracture - Social History Smoking Status: Never smoker Exposure to second hand smoke: Yes Alcohol Use: None Drug Use: none Patient Lives Alone: No Significant Family History: no pertinent family hx - Nursing Vital Signs Nursing Vital Signs: Initial Vital Signs Temperature 98.4 F 04/04/20 11:01 Pulse Rate 61 04/04/20 11:01 Respiratory Rate 18 04/04/20 11:01 Blood Pressure 186/90 04/04/20 11:01 O2 Sat by Pulse Oximetry 99 04/04/20 11:01 Pain Scale Pain Intensity 8 - Physical Exam General Appearance: no apparent distress, alert, anxiety, thin Eyes, Ears, Nose, Throat Exam: normal ENT inspection, moist mucous membranes Neck Exam: normal inspection, non-tender, supple, full range of motion Cardiovascular/Respiratory Exam: chest non-tender, no respiratory distress Gastrointestinal/Abdominal Exam: non-tender Back Exam: normal inspection, normal range of motion, No CVA tenderness, No vertebral tenderness Hips Exam: bilateral: non-tender, normal inspection, normal range of motion Legs Exam: bilateral leg: normal inspection, normal range of motion, no evidence of injury, soft tissue tenderness Knees Exam: bilateral knee: normal inspection, normal range of motion, no evidence of injury, soft tissue tenderness Ankle Exam: bilateral ankle: normal inspection, normal range of motion, no evidence of injury, soft tissue tenderness Foot Exam: bilateral foot: normal inspection, normal range of motion, no evidence of injury, soft tissue tenderness Neuro/Tendon Exam: normal sensation, normal motor functions, normal tendon functions, no evidence tendon injury Mental Status Exam: alert, oriented x 3, cooperative Skin Exam: normal color, warm, dry SpO2 Interpretation: normal O2 Delivery: Room Air Ordered Tests: Active Orders 24 hr Category Date Time Status ARTERIAL BILAT LOWER EXTREMITY [US] Stat Exams 04/04/20 11:21 Completed VENOUS BILATERAL EXTREMITY [US] Stat Exams 04/04/20 11:21 Completed - Progress Progress: unchanged Progress Note: 04/04/20 13:47 Venous Doppler of bilateral lower extremities revealed no evidence of DVT. Arterial duplex of bilateral lower extremity shows diffuse scattered arteriosclerotic disease bilaterally right side worse than left with occlusion of the right posterior tibial and dorsalis pedis arteries. 04/04/20 13:49 I discussed the above radiographic findings with the patient several times until she understood them. She voices that she now understands the results of the above tests. Counseled pt/family regarding: diagnosis, need for follow-up, rad results - Departure Departure Disposition: Home Clinical Impression: Peripheral vascular disease Condition: Stable Critical Care Time: No Referrals: TUCKER MAX MD [Primary Care Provider] - Additional Instructions: Follow-up with Dr. Canchola. Call today to make a follow-up appointment with her for possible referral to a vascular surgeon if indicated versus nonoperative medical therapy.
[2020-04-04 13:37] VITALS: BP 162/78; PULSE 58; O2SAT 97
--- NOTE | 2020-04-04 13:37 | XRAY ---
Indication: Bilateral leg pain. Two-dimensional sonogram and color Doppler imaging of the major arteries of the left and right leg was performed. Comparison: None Examination of the left leg demonstrates mild/moderate scattered arteriosclerotic disease in the visualized common femoral, superficial femoral, popliteal, posterior tibial, and dorsal pedal arteries. Common femoral and popliteal arterial waveforms are biphasic with remaining left leg arterial waveforms monophasic. Examination of the right leg demonstrates mild scattered arterial stripe disease in the visualized common femoral, superficial femoral, and popliteal arteries. Arterial waveforms are monophasic. Posterior tibial and dorsal pedal arteries are occluded. Impression: Diffuse scattered arteriosclerotic disease bilaterally. Right posterior and dorsal pedal arteries are occluded.
--- NOTE | 2020-04-04 13:38 | XRAY ---
Indication: Bilateral leg pain. Two-dimensional sonogram and color Doppler imaging of the major venous vessels of the left and right leg was performed. Comparison: None No thrombus seen in the examined deep venous vessels of the left and right leg including greater saphenous vein. Veins demonstrate normal compressibility. Venous waveforms are normal with and without augmentation. Impression: Left and right leg negative for DVT.
== END 2020-04-04 14:07 | disposition home or self-care (01) ==
LOC: ED 10:52
DX: I73.9 Peripheral vascular disease, unspecified (principal); J44.9 Chronic obstructive pulmonary disease, unspecified; I25.2 Old myocardial infarction; Z79.899 Other long term (current) drug therapy; M25.572 Pain in left ankle and joints of left foot; M25.571 Pain in right ankle and joints of right foot; M25.562 Pain in left knee; M25.561 Pain in right knee; M79.605 Pain in left leg; M79.604 Pain in right leg
CPT/HCPCS: 93925; 93970; 99283

== ENCOUNTER 2021-03-04 11:54 | Emergency (ER) | payer MEDICARE ==
[2021-03-04] MEDS ORDERED: NORCO 5/325 MG PO ONE (12:54)
[2021-03-04] MEDS ORDERED: NORCO 5/325 MG ONE (12:57)
[2021-03-04 13:07] VITALS: BP 111/50
--- NOTE | 2021-03-04 13:27 | ERPHSYRPT ---
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 Patient reports she is used bedside commode last night and might have twisted her hip while getting out of bed. She denies any fall or direct trauma. Pain is better with resting and aggravated with weightbearing. Denies any swelling numbness tingling or weakness in the leg. Method of Injury: twisted Occurred: yesterday Quality: sharpness Severity of Pain-Max: moderate Severity of Pain-Current: mild Lower Extremities Pain: hip: left Modifying Factors: Improves With: immobilization, rest. Worsens With: movement Allergies/Adverse Reactions: Sulfa (Sulfonamide Antibiotics) [Sulfa(Sulfonamide Antibiotics)] Allergy (Severe, Verified 03/04/21 12:04) Home Medications: Budesonide 0.5 mg/2 ml [Pulmicort 0.5 mg/2 ml Respules] 0.5 mg IH BID PRN 07/14/18 [History] Furosemide 20 mg [Lasix 20 mg] 20 mg PO DAILY PRN 07/14/18 [History] Lubiprostone [Amitiza] 8 mcg PO DAILY 07/14/18 [History] raNITIdine HCL [Zantac 75] 150 mg PO BID 07/14/18 [History] Metoprolol Tartrate 25 mg [Lopressor 25MG Tab] 25 tab PO BID 07/15/18 [History] Amlodipine Besylate [Norvasc] 2.5 mg PO DAILY 03/04/21 [History] Cilostazol 100 mg [Pletal 100 MG] 100 mg PO BID 03/04/21 [History] Potassium Chloride 10 Meq Tab* [Klor Con 10 MEQ] 10 meq PO DAILY 03/04/21 [History] Pravastatin Sodium 20 mg PO DAILY 03/04/21 [History] Hx Tetanus, Diphtheria Vaccination/Date Given: Yes Hx Influenza Vaccination/Date Given: No Hx Pneumococcal Vaccination/Date Given: Yes Travel Risk - International Travel Have you traveled outside of the country in past 3 weeks: No - Coronavirus Screening Are you exhibiting any of the following symptoms?: No Close contact with a COVID-19 positive Pt in past 14-21 Days: No - Vaccine Status Have you recieved a Covid-19 vaccination: Yes 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 - Vaccination Dates Dates if Unknown: unknown - Review of Systems Constitutional: No Symptoms Eyes: No Symptoms Ears, Nose, & Throat: No Symptoms Respiratory: No Symptoms Cardiac: No Symptoms Abdominal/Gastrointestinal: No Symptoms Genitourinary Symptoms: No Symptoms Skin: No Symptoms Neurological: No Symptoms Psychological: No Symptoms Endocrine: No Symptoms Hematologic/Lymphatic: No Symptoms Immunological/Allergic: No Symptoms - Past Medical History Pertinent Past Medical History: Yes Neurological History: No Pertinent History ENT History: Cataracts Cardiac History: No Pertinent History, Myocardial Infarction ([place]) Respiratory History: Asthma, COPD Endocrine Medical History: No Pertinent History Musculoskeletal History: Arthritis, Degenerative Disk Disease, Fractures, Osteoporosis GI Medical History: Ulcer, Other History: No Pertinent History Psycho-Social History: Anxiety, Depression, Eating Disorders Female Reproductive Disorders: No Pertinent History Other Medical History: FREQUENT CONSTIPATION, kyphoscoliosis - Past Surgical History Past Surgical History: Yes Neuro Surgical History: No Pertinent History Cardiac: No Pertinent History Respiratory: No Pertinent History Gastrointestinal: No Pertinent History Genitourinary: No Pertinent History Musculoskeletal: Orthopedic Surgery Female Surgical History: No Pertinent History Other Surgical History: right hip fracture - Social History Smoking Status: Never smoker Exposure to second hand smoke: No Alcohol Use: None Drug Use: none Patient Lives Alone: No Significant Family History: no pertinent family hx - Female History Hx Now: No - Nursing Vital Signs Nursing Vital Signs: Initial Vital Signs Temperature 98.6 F 03/04/21 11:56 Pulse Rate 77 03/04/21 11:56 Blood Pressure 115/61 03/04/21 11:56 O2 Sat by Pulse Oximetry 99 03/04/21 11:56 Pain Scale Pain Intensity 0 - Physical Exam General Appearance: no apparent distress, alert Eyes, Ears, Nose, Throat Exam: normal ENT inspection, pharynx normal Neck Exam: normal inspection, non-tender, supple, full range of motion Cardiovascular/Respiratory Exam: chest non-tender, normal breath sounds, regular rate/rhythm Gastrointestinal/Abdominal Exam: non-tender, soft, no organomegaly Back Exam: normal inspection, No vertebral tenderness Hips Exam: right: non-tender, left: bone tenderness, pain, soft tissue tenderness, bilateral: normal inspection, normal range of motion, no evidence of injury Legs Exam: bilateral leg: non-tender, normal inspection, normal range of motion, no evidence of injury Knees Exam: bilateral knee: non-tender, normal inspection, normal range of motion, no evidence of injury Ankle Exam: bilateral ankle: non-tender, normal inspection, normal range of motion, no evidence of injury Foot Exam: bilateral foot: non-tender, normal inspection, normal range of motion, no evidence of injury Neuro/Tendon Exam: normal sensation, normal motor functions, normal tendon functions Mental Status Exam: alert, oriented x 3, cooperative Skin Exam: normal color SpO2 Interpretation: normal SpO2: 99 O2 Delivery: Room Air Ordered Tests: Active Orders 24 hr Category Date Time Status HIP UNI (2V) INCL PEL IF DONE Stat Exams 03/04/21 12:09 Taken Medication Summary Discontinued Medications Generic Name Dose Route Start Last Admin Trade Name Elvis PRN Reason Stop Dose Admin Hydrocodone Bitart/Acetaminophen 1 tab 03/04/21 12:54 03/04/21 12:58 [place] 5/325 Mg PO 03/04/21 12:55 1 tab STAT ONE Administration Hydrocodone Bitart/Acetaminophen Confirm 03/04/21 12:57 [place] 5/325 Mg Administered 03/04/21 12:58 Dose 1 tab .ROUTE .STK-MED ONE - Progress Progress: improved Progress Note: She is given [place] for symptomatic relief. On reevaluation feeling better. No limitation of range of motion. I did not appreciate any fracture dislocation. I believe patient has ligamentous strain, recommended Tylenol, and using walker/cane for ambulation and outpatient follow-up. Discussed signs symptoms of worsening needing return to ER which she seems understanding. 03/04/21 14:16 Counseled pt/family regarding: diagnosis, need for follow-up, rad results - Departure Departure Disposition: Home Clinical Impression: Strain of left hip Qualifiers: Encounter type: initial encounter Qualified Code(s): S76.012A - Strain of muscle, fascia and tendon of left hip, initial encounter Condition: Stable Critical Care Time: No Referrals: SHMUEL DUMAS MD [Primary Care Provider] - Follow Up with PCP/3 days Instructions: Hip Fracture (DC), Lower Extremity Muscle Strain (DC) Additional Instructions: Take Tylenol as needed for pain control. Do not take ibuprofen or Aleve. Use cane/walker for ambulation all the time to avoid a fall. Follow-up with primary care physician for reevaluation in 2 to 3 days. Return to ER for worsening pain, swelling or inability to put any weight on left lower extremity.
[2021-03-04 14:03] VITALS: PULSE 71
[2021-03-04 14:17] VITALS: O2SAT 99
--- NOTE | 2021-03-04 18:55 | XRAY ---
Indication: Pain. No known injury. Comparison: July 14, 2016. 2 view left hip again demonstrates osteopenia, mild scattered vascular calcifications, and small calcified uterine fibroid. No new/acute bony, articular, or soft tissue abnormalities. Comment: Preliminary interpretation was made by [facility]. No critical discrepancy.
== END 2021-03-04 14:46 | disposition home or self-care (01) ==
LOC: ED 11:54
DX: S76.012A Strain of muscle, fascia and tendon of left hip, initial encounter (principal); M25.552 Pain in left hip; Z79.899 Other long term (current) drug therapy
CPT/HCPCS: 73502; 99284; A9270-GY